=== PATIENT | male | born 1940 | race Caucasian/White ===

== ENCOUNTER 2022-05-15 14:56 | Inpatient (IN) ==
[2022-05-15 18:16] LABS: BASOPHILS % (AUTO) 0.2 % (0.2-1.0); EOSINOPHILS % (AUTO) 0.4 % (0.9-2.9); HEMATOCRIT 25.5 % (42.0-54.0); HEMOGLOBIN 8.6 g/dL (13.5-18.0); LYMPHOCYTES # (AUTO) 0.6 X10^3/uL (1.3-2.9); LYMPHOCYTES % (AUTO) 7.6 % (21.0-51.0); MEAN CORPUSCULAR HEMOGLOBIN 29.2 pg (27.0-34.0); MEAN CORPUSCULAR HGB CONC 33.8 g/dL (33.0-35.0); MEAN CORPUSCULAR VOLUME 86.3 fL (80.0-100.0); MEAN PLATELET VOLUME 7.5 fL (7.4-11.0); MONOCYTES # (AUTO) 0.4 x10^3/uL (0.3-0.8); MONOCYTES % (AUTO) 4.9 % (0.0-13.0); NEUTROPHILS % (AUTO) 86.9 % (42.0-75.0); RED BLOOD COUNT 2.96 X10^6/uL (4.7-6.0)
[2022-05-15] MEDS ORDERED: DUONEB 0.5 MG/3 MG (3 mL) NEB SCH (18:30)
[2022-05-15 18:55] LABS: ALANINE AMINOTRANSFERASE 28 Units/L (12-78); ALBUMIN 3.5 g/dL (3.4-5.0); ALKALINE PHOSPHATASE 65 Units/L (46-116); ASPARTATE AMINO TRANSFERASE 16 Units/L (15-37); BLOOD UREA NITROGEN 132 mg/dL (7-18); CALCIUM 7.8 mg/dL (8.5-10.1); CARBON DIOXIDE 18.5 mmol/L (21-32); CHLORIDE 105 mmol/L (98-107); CREATININE 10.39 mg/dL (0.70-1.30); SODIUM 141 mmol/L (136-145); TOTAL PROTEIN 6.1 g/dL (6.4-8.2); eGFR NON BLACK RACES 5 (>60)
[2022-05-15] MEDS: NICOTINE PATCH TD SCH (20:56)
[2022-05-15] MEDS: NEURONTIN CAP 300 MG PO SCH (20:57)
[2022-05-15] MEDS: DITROPAN TAB 5 MG PO SCH (20:57)
[2022-05-15] MEDS: APRESOLINE TAB 25 MG PO SCH (20:57)
[2022-05-15] MEDS: SODIUM BICARBONATE TAB 650MG PO SCH (20:57)
[2022-05-15] MEDS: DUONEB 0.5 MG/3 MG (3 mL) NEB SCH (21:00)
[2022-05-16] MEDS: DUONEB 0.5 MG/3 MG (3 mL) NEB SCH ×2 (06:24→21:00)
[2022-05-16] MEDS: NICOTINE PATCH TD SCH (09:50)
[2022-05-16] MEDS: PROTONIX TAB 40 MG PO SCH (09:51)
[2022-05-16] MEDS: APRESOLINE TAB 25 MG PO SCH ×2 (09:51→21:03)
[2022-05-16] MEDS: NORVASC TAB 10 MG PO SCH (09:51)
[2022-05-16] MEDS: SODIUM BICARBONATE TAB 650MG PO SCH ×2 (09:51→21:03)
[2022-05-16] MEDS: DITROPAN TAB 5 MG PO SCH ×2 (09:51→21:03)
[2022-05-16] MEDS: ASPIRIN 81 MG CHEWTAB PO SCH (09:52)
[2022-05-16] MEDS ORDERED: NS 250 ML IV 250 ML IV ONE (11:19)
--- NOTE | 2022-05-16 11:23 | DR.H&P ---
H&P - History & Physical for Day of: H&P Date: 05/15/22 - Chief Complaint Chief Complaint: WEAKNESS, UNSTEADY GAIT, DIFFICULTY PERFORMING ADLs. - History of Present Illness History of Present Illness: WAS ADMITTED INPATIENT SWINGBED STATUS FOR TREATMENT OF ACUTE KIDNEY FAILURE, URINARY OUTLET OBSTRUCTION WITH HYDRONEPHROSIS, GENERALIZED WEAKNESS, DECONDITIONING. HE IS STATUS POST CYSTOSCOPY. OBSTRUCTION IS LIKELY DUE TO MASS OF THE PROSTATE. BIOPSIES ARE PENDING. UROLOGIST RECOMMENDED THAT PATIENT REMAIN ON IV ANTIBIOTICS POST CYSTOSCOPY UNTIL 05/18/22. PATIENT WILL RECEIVE PHYSICAL AND OCCUPATIONAL THERAPIES WHILE HE IS HOSPITALIZED. - Past Medical History Past Medical History: Anxiety, Arthritis, GERD, Hypertension, Renal Disease Additional Medical History: BPH, CHRONIC LOW BACK PAIN, DDD - Past Surgical History Surgical History: Other Additional Surgical History: INGUINAL HERNIA REPAIR, PROSTATE - Family History Family Medical History: Diabetes Mellitus, Cancer, MA, Hypertension - Medications Home Medications: No Known Allergies Allergy (Verified 05/09/22 18:15) CONTINUE taking the following medications acetaminophen 325 mg tablet (Tylenol) 650 mg PO Q4HR PRN Fever 05/15/22 [History] amlodipine 10 mg tablet 10 mg PO DAILY 05/15/22 [History] aspirin 81 mg chewable tablet 81 mg PO DAILY 05/15/22 [History] clonazepam 0.5 mg tablet 0.5 mg PO BID PRN Anxiety 05/15/22 [History] dicyclomine 20 mg tablet 20 mg PO QID PRN Abdominal Pain 05/15/22 [History] gabapentin 300 mg tablet 300 mg PO HS 05/15/22 [History] hydralazine 50 mg tablet 50 mg PO BID 05/15/22 [History] ipratropium 0.5 mg-albuterol 3 mg (2.5 mg base)/3 mL nebulization soln 3 ml inhalation Q8H 05/15/22 [History] nicotine 14 mg/24 hr daily transdermal patch 1 patch transdermal DAILY 05/15/22 [History] oxybutynin chloride 5 mg tablet 5 mg PO BID 05/15/22 [History] pantoprazole 40 mg tablet,delayed release (Protonix) 40 mg PO DAILY 05/15/22 [History] sodium bicarbonate 650 mg tablet 650 mg PO BID 05/15/22 [History] tizanidine 2 mg tablet 2 mg PO HS PRN Muscle Spasticity 05/15/22 [History] - Review of Systems Constitutional: Weakness Eyes: No Symptoms Reported ENT: No Symptoms Reported Respiratory: No Symptoms Reported Cardiovascular: No Symptoms Reported Gastrointestinal: No Symptoms Reported Genitourinary: Retention (PATIENT NOW HAS A MCLEAN CATHETER IN PLACE ) Musculoskeletal: Back Pain Skin: No Symptoms Reported Neurological: Weakness, Confusion - Physical Exam Vital Signs: Temperature 97.6 F Pulse Rate [Left Brachial] 93 Pulse Rate 68 Respiratory Rate 18 Blood Pressure [Left Arm] 164/72 O2 Sat by Pulse Oximetry 96 Oriented: Normal Eyes: Normal Ear: Normal Nose: Normal Throat: Normal Respiratory: Clear Throughout Cardiovascular: Normal : Normal Auscultation: Bowel Sounds: Normal Palpation: Normal Tenderness: Suprapubic Skin: Normal Musculoskeletal: Back:Lumbar, Tender Psychiatric: Normal Mood Description: Calm Affect: Normal Speech Pattern: Clear - Assessment/Plan (1) Urinary (tract) obstruction Status: Acute (2) Hydronephrosis Qualifiers: Hydronephrosis type: unspecified Qualified Code(s): N13.30 - Unspecified hydronephrosis Status: Acute (3) Urinary tract infection Qualifiers: Urinary tract infection type: acute cystitis Hematuria presence: without hematuria Qualified Code(s): N30.00 - Acute cystitis without hematuria Status: Acute (4) Acute kidney injury Status: Acute (5) Acute confusion Status: Acute (6) HTN (hypertension) Qualifiers: Hypertension type: primary hypertension Qualified Code(s): I10 - Essential (primary) hypertension Status: Chronic (7) Lumbar degenerative disc disease Status: Chronic - Allergies Allergies/Adverse Reactions: Allergies Allergy/AdvReac Type Severity Reaction Status Date / Time No Known Allergies Allergy Verified 05/09/22 18:15
[2022-05-16] MEDS: ROCEPHIN VIAL 1 GRAM 1 G in NS 100 ML IV 100 ML IV SCH (11:49)
[2022-05-16] MEDS: ZYVOX 600MG IV 600 MG/300 ML BAG IV SCH ×2 (12:18→21:03)
--- NOTE | 2022-05-16 12:58 | PT/OTEVAL ---
PT/OT OBJECTIVES - HISTORY Prescription: PT Consult Diagnosis: Acute on Chronic Kidney Failure, Renal Acidosis, Hyperkalemia, Acute Confus Precautions: Fall Risk, + Catheter PMH: Acute on Chronic Renal Failure, Anxiety, Arthritis, GERD, HTN, BPH, LBP, DDD, Urinary Outlet Obstruction with B Hydonephrosis, Prostate Enlargement, Inguinal Hernia Repair, Transurethral Resection of Prostate Complexities/Comorbities: Complicated medical history Prior Level of Function: Independent Other: Pt's son present in room & assisted in providing information that pt could not. Prior to hospitalization- pt resides in single story home with 1 step to enter with his grandson. Grandson works multimedia producer so pt's is alone during the day. Pt was independent with all mobility tasks within home and community without a device including driving. Pt with no significant deficits, but does report history of low back pain to LLE radicular symptoms. Pt does not have any DME. History of Present Illness: Pt is an 81 year old male who was admitted to [facility] on 05/15/2022 for swing bed program following hospitalization at [facility] from 05/10/2022-05/15/2022 for AMS and urinary incontinence. Pt underwent a cystoscopy with irrigation of clots and catheter placement on 05/11/2022. Once pt was medically stabilized, pt was transferred to [facility] for swing bed program. - COGNITION Mental Status: Alert, Oriented, Name, Confused, Decreased Safety Awarenes Communication Status: Verbal Ability to Follow Directions: 1 Step Memory Loss: Short term memory loss Affect: Sad (Pt noted to tear up when initially asking about PLOF and living situation. Able to be redirected with no further crying noted.) - BED MOBILITY Rolling: Moderate Scooting: Moderate - TRANSFERS Supine to Sit: Moderate Sit to Stand: Moderate Sit or Stand Pivot: Moderate Safety (requires cues for:): Hand Placement Precaution - BALANCE Static Standing: Fair Balance Comment: Static Standing: Fair- Dynamic Sitting: Fair Standing: Poor Balance Comment: Dynamic Standing: Poor- - NEUROMOTOR/SENSATION Curt. Lower Ext Sensation: WFL Coordination: WFL Proprioception: WFL - HAND DOMINANCE Extremity Function: Hand Dominance: Right - ROM Bilateral LE ROM: WFL Muscle Tone: WFL - STRENGTH Bilateral LE Strength Number: 3 Other comment: 3-/5 - GAIT Pt. ambulates how many feet?: 20 Amount of Assistance Required: Minimal Type of Assistive Device: Rolling Walker Comments: FWW- posterior lean noted, unsteady. Mod/max cues for sequencing with FWW - OBJECTIVE MEASURES & STANDARDS Objective Measures & Standards: Elderly Mobility Scale: 11/16 - TREATMENT Date: 05/16/22 Time: 10:15 Treatment Type: Evaluation Treatment Provided: Gait, Therapeutic Activities - TOTAL TREATMENT TIME Total Time: 75 - POST ASSESSMENT Post Assessment Comment: Pt was found supine in bed in room with son present & agreeable to participation in PT services. Pt attempted to provide history & PLOF information but did have some difficulty recalling all details which son assisted in completing full history. Pt required mod assist to complete bed mobility tasks and functional transfers. Pt required cues for proper hand placement and sequencing for mobility tasks. Pt able to perform standing standing x 4 minutes before fatigue with min assist to maintain balance- pt able to let go of walker x 1 attempt requiring min/mod assist to maintain standing balance. Pt then ambulated for 15ft x 2 with seated therapeutic rest break between trials. Pt then ambulated for an additional 20ft in room with FWW with min assist to recliner chair. Pt agreeable to sit in chair in room with son present. Explained PT POC and goals. Plan is to discharge home if possible. Pt would benefit from continued participation in PT services to address all deficits and facilitate highest level of function & safe discharge planning. - EXIT DISPOSITION Exit Position: CHAIR Call light in reach: Yes Bed Alarm On: N/A Comments: Son present in room PT/OT ASSESSMENT - PT Problem List: Decreased Bed Mobility, Decreased Transfers, Decreased Gait, Decreased Balance, Decreased Safety, Decreased LE Strength - PT GOALS Short Term Goals Days: 10 Mobility: Pt will perform bed mobility tasks with CGA Transfers: Pt will perform functional transfers with CGA Gait: Pt will ambulate 100ft with FWW with CGA Balance: Pt will increase static standing balance to fair+ to maintain x 10 minutes [employer] Goals Days: 20 Mobility: Pt will perform bed mobility tasks with mod I Transfers: Pt will perform functional transfers with mod I Gait: Pt will ambulate 250ft with LRAD with mod I Balance: Pt will increase dynamic standing balance to fair/fair+ ROM/Strength: Pt will increase BLE strength to 5/5 Others: Pt will ascend/descend 1 step with LRAD with mod I - PATIENT GOALS Patient/Family Goals: "Just get home if I can" Goals Discussed with Patient/Family: Yes Rehabilitation Potential: Good to meet stated goals Justification for Potential: Facilitate highest level of function & safe discharge planning Weakness and Barriers: Cognitive Barrier If yes, explain: Short term memory deficits noted. - PLAN Suggested Treatment Plan: Bed Mobility Training, Therapeutic Activity, Gait Training, Neuro Re-education, Therapeutic Ex with HEP, Patient Education, Family Education - FREQUENCY AND DURATION PT: 5x per week x hospital stay Expected Continuation of Care at Discharge: Home Health Anticipated Equipment Needs: TBD pending progress with therapy services.
[2022-05-16] MEDS: NEURONTIN CAP 300 MG PO SCH (21:03)
[2022-05-17] MEDS: DUONEB 0.5 MG/3 MG (3 mL) NEB SCH ×3 (05:15→21:00)
[2022-05-17] MEDS: ZYVOX 600MG IV 600 MG/300 ML BAG IV SCH ×2 (08:18→20:32)
[2022-05-17] MEDS: SODIUM BICARBONATE TAB 650MG PO SCH ×2 (08:19→20:20)
[2022-05-17] MEDS: PROTONIX TAB 40 MG PO SCH (08:19)
[2022-05-17] MEDS: NORVASC TAB 10 MG PO SCH (08:19)
[2022-05-17] MEDS: ROCEPHIN VIAL 1 GRAM 1 G in NS 100 ML IV 100 ML IV SCH (08:19)
[2022-05-17] MEDS: APRESOLINE TAB 25 MG PO SCH ×2 (08:19→20:20)
[2022-05-17] MEDS: DITROPAN TAB 5 MG PO SCH ×2 (08:19→20:20)
[2022-05-17] MEDS: NICOTINE PATCH TD SCH (08:20)
[2022-05-17] MEDS: ASPIRIN 81 MG CHEWTAB PO SCH (08:20)
[2022-05-17 10:54] LABS: CALCIUM 7.7 mg/dL (8.5-10.1); CARBON DIOXIDE 18.4 mmol/L (21-32); CREATININE 9.71 mg/dL (0.70-1.30)
--- NOTE | 2022-05-17 12:58 | PT/OTEVAL ---
PT/OT OBJECTIVES - HISTORY Prescription: OT consult Diagnosis: Acute on Chronic Kidney Failure,Renal Acidosis,Hyperkalemia,Acute Confusion Precautions: fall risk, (+)lundberg catheter PMH: Acute on Chronic Renal Failure, Anxiety, Arthritis, GERD, HTN, BPH, LBP, DDD, Urinary Outlet Obstruction with B Hydonephrosis, Prostate Enlargement, Inguinal Hernia Repair, Transurethral Resection of Prostate Complexities/Comorbities: Complicated medical history Prior Level of Function: Independent Other: prior to hospitalization, pt lives w/grandson but is basically alone most of the tie as grandson works community health program representative. He resides in a single level home with 3 small steps with no handrail per son's report. Pt reported being independent with ADLs, IADLs and functional mobility without AE and has no reported falls over the past 6 months. History of Present Illness: Pt is an 81 year old male who was admitted to [facility] on 05/15/2022 for swing bed program following hospitalization at [facility] from 05/10/2022-05/15/2022 for AMS and urinary incontinence. Pt underwent a cystoscopy with irrigation of clots and catheter placement on 023. Once pt was medically stabilized, pt was transferred to [facility] for swing bed program. - COGNITION Mental Status: Alert, Oriented, Name, Date, Place, Purpose, Agitated, Decreased Safety Awarenes Communication Status: Verbal Ability to Follow Directions: 3 Step Affect: Sad (patient initially expressed frustration that he can't even go to actual bathroom by himself.Pt also cried during interview when asked of PLOF. Son assisted to calm patient down) - PAIN No signs of pain Pain Scale: No Pain - BED MOBILITY Scooting: Minimal - TRANSFERS Supine to Sit: Minimal Sit to Stand: Moderate Sit or Stand Pivot: Moderate Toileting: Moderate Toileting comment: (+)lundberg catheter, uses BSC at this time Safety (requires cues for:): Hand Placement Precaution - ADL'S Feeding: Independent Grooming: Minimum Upper Body ADL: Minimum Lower Body ADL: Moderate Toileting: Moderate Bathing: Moderate Hygeine: Moderate - BALANCE Static Sitting: Good Standing: Fair Balance Comment: Static Standing: Fair- Dynamic Sitting: Fair Standing: Poor Balance Comment: Dynamic Standing: Poor- - NEUROMOTOR/SENSATION Curt. Lower Ext Sensation: WFL Coordination: WFL Proprioception: WFL Curt. Upper Ext Sensation: WFL Coordination: WFL Proprioception: WFL - HAND DOMINANCE Extremity Function: Hand Dominance: Right - ROM Bilateral UE ROM: WFL Muscle Tone: WFL - STRENGTH Bilateral LE Strength Number: 3 Other comment: 3-/5 Bilateral UE Strength Number: 3 - GAIT Type of Assistive Device: Rolling Walker - TREATMENT Date: 05/17/22 Time: 10:50 Treatment Type: Evaluation Treatment Provided: Therapeutic Excersises - TOTAL TREATMENT TIME Total Time: 65 - POST ASSESSMENT Post Assessment Comment: Patient prefers to be called "Mr. Ceja".He demonstrated G participation with skilled OT initial evaluation and was agreeable to participate with succeeding treatment session. Pt requires extra time to complete functional task and required some verbal cueing for task initiation and sequencing as well as proper hand and feet placement for safety during eval. Pt educated on importance of skilled OT services for returning to PLOF. Pt voiced understanding. Pt participated with therapeutic exercises of B UE using min resistance theraband for 15 reps x 2 sets with demo. Pt completed each exercise with min verbal and visual cues for G carryover. Pt will benefit from skilled OT services to address decline in function and facilitate return to PLOF. - EXIT DISPOSITION Exit Position: BED Call light in reach: Yes Bed Alarm On: NO Comments: Pt was assisted back in the bed with all needs met and call light within reach. Son was present in the room during and after eval. PT/OT ASSESSMENT - OT Problem List: Decreased Mobility ADL's, Decreased Safety Aware, Decreased Dressing, Decreased Bathing, Decreased UE Strength, Other Other, comment: decreased functional activity tolerance - PT GOALS Short Term Goals Days: 10 Mobility: Pt will perform bed mobility tasks with CGA Transfers: Pt will perform functional transfers with CGA Gait: Pt will ambulate 100ft with FWW with CGA Balance: Pt will increase static standing balance to fair+ to maintain x 10 minutes Nursing Home Goals Days: 20 Mobility: Pt will perform bed mobility tasks with mod I Transfers: Pt will perform functional transfers with mod I Gait: Pt will ambulate 250ft with LRAD with mod I Balance: Pt will increase dynamic standing balance to fair/fair+ ROM/Strength: Pt will increase BLE strength to 5/5 Others: Pt will ascend/descend 1 step with LRAD with mod I - OT GOALS Nursing Home Goals Days: 20 Mobility for ADL's: Pt will improve toilet t/f to actual bathroom independently Safety Awareness: Pt will demonstrate G safety awareness to decrease fall risk Dressing: Pt will perform UB/LB dressing independently with AE as needed. Bathing: Pt will improve bathing skills to modified independence w/AE Grooming: Pt will improve grooming skills to independent level Upper Ext. Strength/Use: Pt will increase BUE strength to 4/5 to increase ADL,t/f and mobility Other: Pt will imporve F.A.T. to G to increase efficiency with ADL Short Term Goals Days: 10 Mobility for ADL's: Pt will improve toilet t/f to BSC with min A with AE as needed Dressing: Pt will perform UB/LB dressing with min A with AE as needed. Bathing: Pt will improve bathing skills to min A with AE as needed Grooming: Pt will improve grooming skills to setup A Upper Ext. Strength/Use: Pt will increase BUE strength to 5/5 to increase ADL,t/f and mobility Other: Pt will imporve F.A.T. to F+ to increase efficiency with ADL - PATIENT GOALS Patient/Family Goals: return to PLOF Goals Discussed with Patient/Family: Yes Rehabilitation Potential: good for stated goals Justification for Potential: high level of PLOF, G motivation,G family support - PLAN Suggested Treatment Plan: Therapeutic Activity, Self Care Training, Neuro Re- education, Therapeutic Ex with HEP, Patient Education, Family Education - FREQUENCY AND DURATION OT: 5x a week x hospital stay Expected Continuation of Care at Discharge: Home Health, Rehabilitation Center Anticipated Equipment Needs: to be determined depending on patient's progress
[2022-05-17] MEDS: BENTYL CAP 10 MG PO PRN (19:00)
[2022-05-17] MEDS: NEURONTIN CAP 300 MG PO SCH (20:20)
[2022-05-17] MEDS: TYLENOL 325 MG TAB PO PRN (21:05)
[2022-05-18 05:02] LABS: BASOPHILS % (AUTO) 0.3 % (0.2-1.0); EOSINOPHILS # (AUTO) 0.2 x10^3/uL (0.0-0.2); EOSINOPHILS % (AUTO) 3.3 % (0.9-2.9); HEMATOCRIT 21.4 % (42.0-54.0); HEMOGLOBIN 7.3 g/dL (13.5-18.0); LYMPHOCYTES # (AUTO) 0.9 X10^3/uL (1.3-2.9); LYMPHOCYTES % (AUTO) 16.3 % (21.0-51.0); MEAN CORPUSCULAR HGB CONC 34.1 g/dL (33.0-35.0); MEAN CORPUSCULAR VOLUME 85.1 fL (80.0-100.0); MONOCYTES # (AUTO) 0.4 x10^3/uL (0.3-0.8); NEUTROPHILS # (AUTO) 4.2 x10^3/uL (2.2-4.8); NEUTROPHILS % (AUTO) 73.1 % (42.0-75.0); RED BLOOD COUNT 2.52 X10^6/uL (4.7-6.0); RED CELL DISTRIBUTION WIDTH 15.2 % (11.6-16.5); WHITE BLOOD COUNT 5.7 X10^3/uL (3.6-10.0)
[2022-05-18 05:12] LABS: ALANINE AMINOTRANSFERASE 41 Units/L (12-78); ALBUMIN 3.1 g/dL (3.4-5.0); ALKALINE PHOSPHATASE 55 Units/L (46-116); ASPARTATE AMINO TRANSFERASE 27 Units/L (15-37); BLOOD UREA NITROGEN 110 mg/dL (7-18); CALCIUM 7.9 mg/dL (8.5-10.1); CHLORIDE 107 mmol/L (98-107); COR CA(FOR HYPOALB) 8.6 mg/dL (8.5-10.1); CREATININE 9.39 mg/dL (0.70-1.30); SODIUM 142 mmol/L (136-145); TOTAL PROTEIN 5.5 g/dL (6.4-8.2); eGFR NON BLACK RACES 6 (>60)
[2022-05-18 05:29] LABS: HYPOCHROMASIA SLIGHT; MICROCYTOSIS SLIGHT; PLATELET MORPHOLOGY COMMENT NORMAL (NORMAL); SCHISTOCYTES PRESENT
[2022-05-18] MEDS: DUONEB 0.5 MG/3 MG (3 mL) NEB SCH ×3 (06:05→20:20)
[2022-05-18] MEDS: ROCEPHIN VIAL 1 GRAM 1 G in NS 100 ML IV 100 ML IV SCH (08:37)
[2022-05-18] MEDS: ZYVOX 600MG IV 600 MG/300 ML BAG IV SCH ×2 (08:37→20:42)
[2022-05-18] MEDS: APRESOLINE TAB 25 MG PO SCH ×2 (08:38→20:42)
[2022-05-18] MEDS: DITROPAN TAB 5 MG PO SCH ×2 (08:38→20:42)
[2022-05-18] MEDS: NORVASC TAB 10 MG PO SCH (08:38)
[2022-05-18] MEDS: ASPIRIN 81 MG CHEWTAB PO SCH (08:38)
[2022-05-18] MEDS: PROTONIX TAB 40 MG PO SCH (08:38)
[2022-05-18] MEDS: NICOTINE PATCH TD SCH (08:39)
[2022-05-18] MEDS: SODIUM BICARBONATE TAB 650MG PO SCH ×2 (08:39→20:42)
[2022-05-18] MEDS: BENTYL CAP 10 MG PO PRN (09:26)
[2022-05-18 10:24] VITALS: BMI 22.1
[2022-05-18] MEDS ORDERED: COLACE CAP 100 MG PO PRN (12:11)
[2022-05-18] MEDS: MILK OF MAGNESIA PO PRN ×2 (13:00→20:41)
[2022-05-18] MEDS: NEURONTIN CAP 300 MG PO SCH (20:42)
[2022-05-18] MEDS: ZOFRAN INJ 4 MG VIAL IVP PRN (23:35)
[2022-05-19] MEDS: DUONEB 0.5 MG/3 MG (3 mL) NEB SCH ×3 (05:30→21:28)
[2022-05-19 05:46] LABS: BASOPHILS % (AUTO) 0.6 % (0.2-1.0); EOSINOPHILS # (AUTO) 0.2 x10^3/uL (0.0-0.2); EOSINOPHILS % (AUTO) 3.2 % (0.9-2.9); HEMATOCRIT 20.9 % (42.0-54.0); HEMOGLOBIN 7.1 g/dL (13.5-18.0); LYMPHOCYTES # (AUTO) 0.9 X10^3/uL (1.3-2.9); LYMPHOCYTES % (AUTO) 16.3 % (21.0-51.0); MEAN CORPUSCULAR HEMOGLOBIN 29.4 pg (27.0-34.0); MEAN CORPUSCULAR HGB CONC 34.2 g/dL (33.0-35.0); MEAN CORPUSCULAR VOLUME 85.8 fL (80.0-100.0); MEAN PLATELET VOLUME 8.1 fL (7.4-11.0); MONOCYTES # (AUTO) 0.5 x10^3/uL (0.3-0.8); MONOCYTES % (AUTO) 8.3 % (0.0-13.0); NEUTROPHILS # (AUTO) 4.1 x10^3/uL (2.2-4.8); NEUTROPHILS % (AUTO) 71.6 % (42.0-75.0); RED BLOOD COUNT 2.43 X10^6/uL (4.7-6.0); RED CELL DISTRIBUTION WIDTH 14.8 % (11.6-16.5); WHITE BLOOD COUNT 5.8 X10^3/uL (3.6-10.0)
[2022-05-19 06:01] LABS: ALANINE AMINOTRANSFERASE 51 Units/L (12-78); ALKALINE PHOSPHATASE 56 Units/L (46-116); ASPARTATE AMINO TRANSFERASE 32 Units/L (15-37); BLOOD UREA NITROGEN 99 mg/dL (7-18); CALCIUM 7.8 mg/dL (8.5-10.1); CARBON DIOXIDE 20.8 mmol/L (21-32); CHLORIDE 106 mmol/L (98-107); COR CA(FOR HYPOALB) 8.6 mg/dL (8.5-10.1); CREATININE 8.84 mg/dL (0.70-1.30); SODIUM 141 mmol/L (136-145); TOTAL PROTEIN 5.4 g/dL (6.4-8.2); eGFR NON BLACK RACES 6 (>60)
[2022-05-19] MEDS ORDERED: ZYVOX 600MG IV 600 MG/300 ML BAG IV SCH (09:00)
[2022-05-19] MEDS: SODIUM BICARBONATE TAB 650MG PO SCH ×2 (09:29→21:46)
[2022-05-19] MEDS: NORVASC TAB 10 MG PO SCH (09:29)
[2022-05-19] MEDS: PROTONIX TAB 40 MG PO SCH (09:29)
[2022-05-19] MEDS: ASPIRIN 81 MG CHEWTAB PO SCH (09:29)
[2022-05-19] MEDS: DITROPAN TAB 5 MG PO SCH ×2 (09:29→21:46)
[2022-05-19] MEDS: NICOTINE PATCH TD SCH (09:29)
[2022-05-19] MEDS: APRESOLINE TAB 25 MG PO SCH ×2 (09:29→21:44)
[2022-05-19] MEDS: MILK OF MAGNESIA PO PRN (09:30)
[2022-05-19] MEDS ORDERED: PROCRIT or EPOGEN VIAL 10,000 UNITS SC ONE (10:30)
[2022-05-19] MEDS: BENTYL CAP 10 MG PO SCH ×4 (12:23→21:44)
[2022-05-19] MEDS: MIRALAX POWDER (1 DOSE 17 G) PO SCH (12:23)
--- NOTE | 2022-05-19 16:26 | RAD ---
HISTORYABD PAIN HERNIA, PROSTATE, HTNSTUDYKUBCOMPARISONNone availableFINDINGSThere is no abnormal dilated small bowel loops, there are some air containing small bowel loops. There is air in the colon and in the rectosigmoid regionThere is large amount of stool through the abdomen. No abnormal intra-abdominal calcifications.IMPRESSIONMild to moderate constipation. Scattered air in the small bowel loops without specific pattern.Electronically signed by: Dinorah Hunter (May 19, 2022 16:25:18)
[2022-05-19] MEDS: NEURONTIN CAP 300 MG PO SCH (21:45)
[2022-05-19] MEDS: COLACE CAP 100 MG PO SCH (21:45)
[2022-05-19] MEDS: MILK OF MAGNESIA PO SCH (21:46)
[2022-05-20] MEDS: DUONEB 0.5 MG/3 MG (3 mL) NEB SCH ×3 (06:09→21:00)
[2022-05-20] MEDS: NORVASC TAB 10 MG PO SCH (08:09)
[2022-05-20] MEDS: COLACE CAP 100 MG PO SCH ×2 (08:09→21:02)
[2022-05-20] MEDS: DITROPAN TAB 5 MG PO SCH ×2 (08:09→21:04)
[2022-05-20] MEDS: SODIUM BICARBONATE TAB 650MG PO SCH ×2 (08:09→21:03)
[2022-05-20] MEDS: PROTONIX TAB 40 MG PO SCH (08:09)
[2022-05-20] MEDS: ASPIRIN 81 MG CHEWTAB PO SCH (08:09)
[2022-05-20] MEDS: MIRALAX POWDER (1 DOSE 17 G) PO SCH (08:10)
[2022-05-20] MEDS: BENTYL CAP 10 MG PO SCH ×4 (08:10→21:04)
[2022-05-20] MEDS: NICOTINE PATCH TD SCH (08:10)
[2022-05-20] MEDS: APRESOLINE TAB 25 MG PO SCH ×2 (08:10→21:03)
[2022-05-20] MEDS: MILK OF MAGNESIA PO SCH ×2 (08:10→21:04)
[2022-05-20] MEDS: KLONOPIN TAB 0.5 MG PO PRN (08:10)
[2022-05-20] MEDS: NEURONTIN CAP 300 MG PO SCH (21:03)
[2022-05-21] MEDS: DUONEB 0.5 MG/3 MG (3 mL) NEB SCH ×3 (05:59→21:00)
[2022-05-21] MEDS: ASPIRIN 81 MG CHEWTAB PO SCH (09:54)
[2022-05-21] MEDS: NORVASC TAB 10 MG PO SCH (09:54)
[2022-05-21] MEDS: NICOTINE PATCH TD SCH (09:54)
[2022-05-21] MEDS: SODIUM BICARBONATE TAB 650MG PO SCH ×2 (09:54→20:25)
[2022-05-21] MEDS: APRESOLINE TAB 25 MG PO SCH ×2 (09:54→20:25)
[2022-05-21] MEDS: MIRALAX POWDER (1 DOSE 17 G) PO SCH (09:55)
[2022-05-21] MEDS: BENTYL CAP 10 MG PO SCH ×4 (09:55→20:25)
[2022-05-21] MEDS: COLACE CAP 100 MG PO SCH ×2 (09:55→20:25)
[2022-05-21] MEDS: KLONOPIN TAB 0.5 MG PO PRN (09:55)
[2022-05-21] MEDS: PROTONIX TAB 40 MG PO SCH (09:55)
[2022-05-21] MEDS: DITROPAN TAB 5 MG PO SCH ×2 (09:55→20:25)
[2022-05-21] MEDS: MILK OF MAGNESIA PO SCH ×2 (09:56→20:26)
[2022-05-21] MEDS: NEURONTIN CAP 300 MG PO SCH (20:25)
[2022-05-21] MEDS: TYLENOL 325 MG TAB PO PRN (22:15)
[2022-05-22 05:33] LABS: BASOPHILS % (AUTO) 0.4 % (0.2-1.0); EOSINOPHILS # (AUTO) 0.2 x10^3/uL (0.0-0.2); EOSINOPHILS % (AUTO) 3.2 % (0.9-2.9); HEMATOCRIT 22.7 % (42.0-54.0); HEMOGLOBIN 7.6 g/dL (13.5-18.0); LYMPHOCYTES # (AUTO) 0.8 X10^3/uL (1.3-2.9); LYMPHOCYTES % (AUTO) 12.8 % (21.0-51.0); MEAN CORPUSCULAR HGB CONC 33.4 g/dL (33.0-35.0); MEAN PLATELET VOLUME 8.4 fL (7.4-11.0); MONOCYTES # (AUTO) 0.5 x10^3/uL (0.3-0.8); MONOCYTES % (AUTO) 8.1 % (0.0-13.0); NEUTROPHILS # (AUTO) 4.8 x10^3/uL (2.2-4.8); NEUTROPHILS % (AUTO) 75.5 % (42.0-75.0); RED BLOOD COUNT 2.61 X10^6/uL (4.7-6.0); RED CELL DISTRIBUTION WIDTH 15.3 % (11.6-16.5); WHITE BLOOD COUNT 6.3 X10^3/uL (3.6-10.0)
[2022-05-22 05:44] LABS: ALANINE AMINOTRANSFERASE 49 Units/L (12-78); ALBUMIN 3.3 g/dL (3.4-5.0); ALKALINE PHOSPHATASE 66 Units/L (46-116); ASPARTATE AMINO TRANSFERASE 24 Units/L (15-37); BLOOD UREA NITROGEN 80 mg/dL (7-18); CALCIUM 8.1 mg/dL (8.5-10.1); CARBON DIOXIDE 23.3 mmol/L (21-32); CHLORIDE 105 mmol/L (98-107); COR CA(FOR HYPOALB) 8.7 mg/dL (8.5-10.1); CREATININE 8.42 mg/dL (0.70-1.30); SODIUM 138 mmol/L (136-145); eGFR NON BLACK RACES 7 (>60)
[2022-05-22] MEDS: DUONEB 0.5 MG/3 MG (3 mL) NEB SCH ×3 (06:00→21:00)
[2022-05-22] MEDS: NICOTINE PATCH TD SCH (08:22)
[2022-05-22] MEDS: DITROPAN TAB 5 MG PO SCH ×2 (08:23→20:29)
[2022-05-22] MEDS: SODIUM BICARBONATE TAB 650MG PO SCH ×2 (08:23→20:30)
[2022-05-22] MEDS: NORVASC TAB 10 MG PO SCH (08:23)
[2022-05-22] MEDS: ASPIRIN 81 MG CHEWTAB PO SCH (08:24)
[2022-05-22] MEDS: APRESOLINE TAB 25 MG PO SCH ×2 (08:24→20:28)
[2022-05-22] MEDS: PROTONIX TAB 40 MG PO SCH (08:25)
[2022-05-22] MEDS: BENTYL CAP 10 MG PO SCH ×4 (08:25→20:29)
[2022-05-22] MEDS: MILK OF MAGNESIA PO SCH (08:45)
[2022-05-22] MEDS: MIRALAX POWDER (1 DOSE 17 G) PO SCH (08:45)
[2022-05-22] MEDS: COLACE CAP 100 MG PO SCH (08:48)
[2022-05-22] MEDS ORDERED: PROCRIT or EPOGEN VIAL 10,000 UNITS SC SCH (09:00)
[2022-05-22] MEDS: ZOFRAN INJ 4 MG VIAL IVP PRN (12:12)
[2022-05-22] MEDS ORDERED: MILK OF MAGNESIA PO PRN (12:44)
[2022-05-22] MEDS: PROCRIT or EPOGEN VIAL 10,000 UNITS SC SCH (14:31)
[2022-05-22] MEDS: NEURONTIN CAP 300 MG PO SCH (20:30)
[2022-05-22] MEDS: KLONOPIN TAB 0.5 MG PO PRN (20:30)
[2022-05-23] MEDS: DUONEB 0.5 MG/3 MG (3 mL) NEB SCH ×3 (05:56→20:00)
[2022-05-23] MEDS: APRESOLINE TAB 25 MG PO SCH ×2 (08:36→20:32)
[2022-05-23] MEDS: KLONOPIN TAB 0.5 MG PO PRN ×2 (08:36→20:33)
[2022-05-23] MEDS: NORVASC TAB 10 MG PO SCH (08:37)
[2022-05-23] MEDS: PROTONIX TAB 40 MG PO SCH (08:37)
[2022-05-23] MEDS: SODIUM BICARBONATE TAB 650MG PO SCH ×2 (08:38→20:32)
[2022-05-23] MEDS: COLACE CAP 100 MG PO PRN (08:38)
[2022-05-23] MEDS: DITROPAN TAB 5 MG PO SCH ×2 (08:38→20:32)
[2022-05-23] MEDS: BENTYL CAP 10 MG PO SCH ×4 (08:38→20:33)
[2022-05-23] MEDS: ASPIRIN 81 MG CHEWTAB PO SCH (08:38)
[2022-05-23] MEDS: NICOTINE PATCH TD SCH (08:39)
[2022-05-23] MEDS: TYLENOL 325 MG TAB PO PRN (10:37)
[2022-05-23] MEDS: NEURONTIN CAP 300 MG PO SCH (20:32)
[2022-05-24] MEDS: DUONEB 0.5 MG/3 MG (3 mL) NEB SCH ×3 (05:30→21:00)
[2022-05-24] MEDS: COLACE CAP 100 MG PO PRN (08:30)
[2022-05-24] MEDS: NORVASC TAB 10 MG PO SCH (08:31)
[2022-05-24] MEDS: PROTONIX TAB 40 MG PO SCH (08:31)
[2022-05-24] MEDS: TYLENOL 325 MG TAB PO PRN (08:31)
[2022-05-24] MEDS: BENTYL CAP 10 MG PO SCH ×4 (08:33→20:14)
[2022-05-24] MEDS: APRESOLINE TAB 25 MG PO SCH ×2 (08:33→20:16)
[2022-05-24] MEDS: SODIUM BICARBONATE TAB 650MG PO SCH ×2 (08:33→20:16)
[2022-05-24] MEDS: NICOTINE PATCH TD SCH (08:34)
[2022-05-24] MEDS: KLONOPIN TAB 0.5 MG PO PRN (08:34)
[2022-05-24] MEDS: ASPIRIN 81 MG CHEWTAB PO SCH (08:34)
[2022-05-24] MEDS: DITROPAN TAB 5 MG PO SCH ×2 (08:34→20:14)
[2022-05-24] MEDS: PROCRIT or EPOGEN VIAL 10,000 UNITS SC SCH (12:32)
[2022-05-24 13:08] LABS: ALANINE AMINOTRANSFERASE 42 Units/L (12-78); ALKALINE PHOSPHATASE 73 Units/L (46-116); ASPARTATE AMINO TRANSFERASE 17 Units/L (15-37); BLOOD UREA NITROGEN 71 mg/dL (7-18); CALCIUM 7.7 mg/dL (8.5-10.1); CARBON DIOXIDE 25.6 mmol/L (21-32); CHLORIDE 107 mmol/L (98-107); COR CA(FOR HYPOALB) 8.5 mg/dL (8.5-10.1); CREATININE 8.23 mg/dL (0.70-1.30); SODIUM 138 mmol/L (136-145); TOTAL PROTEIN 5.6 g/dL (6.4-8.2); eGFR NON BLACK RACES 7 (>60)
[2022-05-24] MEDS: NS 1,000 ML IV 1,000 ML IV SCH (15:45)
[2022-05-24] MEDS: NEURONTIN CAP 300 MG PO SCH (20:17)
[2022-05-24] MEDS: KLONOPIN TAB 0.5 MG PO SCH (20:17)
[2022-05-25] MEDS: NS 1,000 ML IV 1,000 ML IV SCH ×2 (05:23→21:30)
[2022-05-25 06:05] LABS: BASOPHILS # (AUTO) 0.1 X10^3/uL (0.0-0.1); BASOPHILS % (AUTO) 1.4 % (0.2-1.0); EOSINOPHILS # (AUTO) 0.3 x10^3/uL (0.0-0.2); EOSINOPHILS % (AUTO) 3.1 % (0.9-2.9); HEMATOCRIT 21.2 % (42.0-54.0); LYMPHOCYTES # (AUTO) 1.2 X10^3/uL (1.3-2.9); LYMPHOCYTES % (AUTO) 13.4 % (21.0-51.0); MEAN CORPUSCULAR HEMOGLOBIN 29.2 pg (27.0-34.0); MEAN CORPUSCULAR HGB CONC 33.1 g/dL (33.0-35.0); MEAN CORPUSCULAR VOLUME 88.4 fL (80.0-100.0); MEAN PLATELET VOLUME 7.8 fL (7.4-11.0); MONOCYTES # (AUTO) 0.5 x10^3/uL (0.3-0.8); NEUTROPHILS # (AUTO) 6.7 x10^3/uL (2.2-4.8); NEUTROPHILS % (AUTO) 76.1 % (42.0-75.0); RED CELL DISTRIBUTION WIDTH 14.9 % (11.6-16.5); WHITE BLOOD COUNT 8.8 X10^3/uL (3.6-10.0)
[2022-05-25] MEDS: DUONEB 0.5 MG/3 MG (3 mL) NEB SCH ×3 (06:20→21:00)
[2022-05-25 06:25] LABS: ALANINE AMINOTRANSFERASE 38 Units/L (12-78); ALBUMIN 3.1 g/dL (3.4-5.0); ALKALINE PHOSPHATASE 71 Units/L (46-116); ASPARTATE AMINO TRANSFERASE 16 Units/L (15-37); BLOOD UREA NITROGEN 67 mg/dL (7-18); CALCIUM 7.9 mg/dL (8.5-10.1); CARBON DIOXIDE 22.1 mmol/L (21-32); CHLORIDE 109 mmol/L (98-107); COR CA(FOR HYPOALB) 8.6 mg/dL (8.5-10.1); CREATININE 7.97 mg/dL (0.70-1.30); SODIUM 140 mmol/L (136-145); TOTAL PROTEIN 5.8 g/dL (6.4-8.2); eGFR NON BLACK RACES 7 (>60)
[2022-05-25] MEDS: ASPIRIN 81 MG CHEWTAB PO SCH (08:10)
[2022-05-25] MEDS: SODIUM BICARBONATE TAB 650MG PO SCH ×2 (08:10→21:30)
[2022-05-25] MEDS: NORVASC TAB 10 MG PO SCH (08:11)
[2022-05-25] MEDS: NICOTINE PATCH TD SCH (08:11)
[2022-05-25] MEDS: APRESOLINE TAB 25 MG PO SCH ×2 (08:11→21:30)
[2022-05-25] MEDS: BENTYL CAP 10 MG PO SCH ×4 (08:11→21:30)
[2022-05-25] MEDS: PROTONIX TAB 40 MG PO SCH (08:11)
[2022-05-25] MEDS: DITROPAN TAB 5 MG PO SCH ×2 (08:15→21:29)
[2022-05-25] MEDS ORDERED: KAYEXALATE SUSP PO NR (10:00)
[2022-05-25] MEDS ORDERED: LASIX IVP PRN (10:04)
[2022-05-25] MEDS ORDERED: NS 250 ML IV 250 ML IV ONE (18:04)
[2022-05-25] MEDS: KLONOPIN TAB 0.5 MG PO SCH (21:30)
[2022-05-25] MEDS: NEURONTIN CAP 300 MG PO SCH (21:30)
[2022-05-25 23:25] LABS: HEMATOCRIT 25.7 % (42.0-54.0); HEMOGLOBIN 8.6 g/dL (13.5-18.0)
[2022-05-26] MEDS: DUONEB 0.5 MG/3 MG (3 mL) NEB SCH ×3 (06:00→21:00)
[2022-05-26] MEDS: NORVASC TAB 10 MG PO SCH (09:21)
[2022-05-26] MEDS: NICOTINE PATCH TD SCH (09:21)
[2022-05-26] MEDS: BENTYL CAP 10 MG PO SCH ×4 (09:21→20:49)
[2022-05-26] MEDS: ASPIRIN 81 MG CHEWTAB PO SCH (09:21)
[2022-05-26] MEDS: DITROPAN TAB 5 MG PO SCH ×2 (09:21→20:50)
[2022-05-26] MEDS: SODIUM BICARBONATE TAB 650MG PO SCH ×2 (09:21→20:50)
[2022-05-26] MEDS: APRESOLINE TAB 25 MG PO SCH ×2 (09:21→20:50)
[2022-05-26] MEDS: PROTONIX TAB 40 MG PO SCH (09:21)
[2022-05-26] MEDS: NS 1,000 ML IV 1,000 ML IV SCH (10:32)
[2022-05-26 10:41] LABS: BASOPHILS # (AUTO) 0.1 X10^3/uL (0.0-0.1); EOSINOPHILS # (AUTO) 0.3 x10^3/uL (0.0-0.2); EOSINOPHILS % (AUTO) 2.8 % (0.9-2.9); HEMATOCRIT 25.9 % (42.0-54.0); HEMOGLOBIN 8.7 g/dL (13.5-18.0); LYMPHOCYTES # (AUTO) 0.7 X10^3/uL (1.3-2.9); LYMPHOCYTES % (AUTO) 6.8 % (21.0-51.0); MEAN CORPUSCULAR HEMOGLOBIN 29.2 pg (27.0-34.0); MEAN CORPUSCULAR HGB CONC 33.4 g/dL (33.0-35.0); MEAN CORPUSCULAR VOLUME 87.5 fL (80.0-100.0); MEAN PLATELET VOLUME 7.1 fL (7.4-11.0); MONOCYTES # (AUTO) 0.5 x10^3/uL (0.3-0.8); MONOCYTES % (AUTO) 5.4 % (0.0-13.0); NEUTROPHILS # (AUTO) 8.2 x10^3/uL (2.2-4.8); RED BLOOD COUNT 2.96 X10^6/uL (4.7-6.0); RED CELL DISTRIBUTION WIDTH 16.4 % (11.6-16.5); WHITE BLOOD COUNT 9.8 X10^3/uL (3.6-10.0)
[2022-05-26 10:53] LABS: ALBUMIN 2.9 g/dL (3.4-5.0); CALCIUM 7.6 mg/dL (8.5-10.1); CARBON DIOXIDE 22.6 mmol/L (21-32); COR CA(FOR HYPOALB) 8.5 mg/dL (8.5-10.1); CREATININE 7.8 mg/dL (0.70-1.30); TOTAL PROTEIN 5.7 g/dL (6.4-8.2)
[2022-05-26] MEDS: NORCO 5/325 MG TAB PO PRN ×2 (11:41→20:50)
[2022-05-26] MEDS: PROCRIT or EPOGEN VIAL 10,000 UNITS SC SCH (12:51)
[2022-05-26] MEDS: NEURONTIN CAP 300 MG PO SCH (20:49)
[2022-05-26] MEDS: KLONOPIN TAB 0.5 MG PO SCH (20:50)
[2022-05-27] MEDS: NS 1,000 ML IV 1,000 ML IV SCH ×3 (01:23→14:30)
[2022-05-27] MEDS: DUONEB 0.5 MG/3 MG (3 mL) NEB SCH ×2 (06:00→14:00)
[2022-05-27 06:27] LABS: BASOPHILS # (AUTO) 0.1 X10^3/uL (0.0-0.1); BASOPHILS % (AUTO) 0.8 % (0.2-1.0); EOSINOPHILS # (AUTO) 0.2 x10^3/uL (0.0-0.2); EOSINOPHILS % (AUTO) 2.4 % (0.9-2.9); HEMATOCRIT 25.8 % (42.0-54.0); HEMOGLOBIN 8.5 g/dL (13.5-18.0); LYMPHOCYTES # (AUTO) 0.8 X10^3/uL (1.3-2.9); LYMPHOCYTES % (AUTO) 8.3 % (21.0-51.0); MEAN CORPUSCULAR HEMOGLOBIN 28.9 pg (27.0-34.0); MEAN CORPUSCULAR VOLUME 87.6 fL (80.0-100.0); MEAN PLATELET VOLUME 7.3 fL (7.4-11.0); MONOCYTES # (AUTO) 0.5 x10^3/uL (0.3-0.8); MONOCYTES % (AUTO) 5.5 % (0.0-13.0); NEUTROPHILS # (AUTO) 8.3 x10^3/uL (2.2-4.8); RED BLOOD COUNT 2.94 X10^6/uL (4.7-6.0)
[2022-05-27 06:40] LABS: ALANINE AMINOTRANSFERASE 33 Units/L (12-78); ALBUMIN 2.9 g/dL (3.4-5.0); ALKALINE PHOSPHATASE 72 Units/L (46-116); ASPARTATE AMINO TRANSFERASE 13 Units/L (15-37); BLOOD UREA NITROGEN 57 mg/dL (7-18); CALCIUM 7.8 mg/dL (8.5-10.1); CARBON DIOXIDE 19.9 mmol/L (21-32); CHLORIDE 111 mmol/L (98-107); COR CA(FOR HYPOALB) 8.7 mg/dL (8.5-10.1); CREATININE 7.51 mg/dL (0.70-1.30); SODIUM 143 mmol/L (136-145); TOTAL PROTEIN 5.7 g/dL (6.4-8.2); eGFR NON BLACK RACES 7 (>60)
[2022-05-27] MEDS: ASPIRIN 81 MG CHEWTAB PO SCH (09:29)
[2022-05-27] MEDS: SODIUM BICARBONATE TAB 650MG PO SCH ×2 (09:29→21:17)
[2022-05-27] MEDS: NICOTINE PATCH TD SCH (09:29)
[2022-05-27] MEDS: DITROPAN TAB 5 MG PO SCH ×2 (09:29→21:17)
[2022-05-27] MEDS: APRESOLINE TAB 25 MG PO SCH ×2 (09:29→21:17)
[2022-05-27] MEDS: CYMBALTA PO SCH (09:29)
[2022-05-27] MEDS: NORCO 5/325 MG TAB PO PRN (09:30)
[2022-05-27] MEDS: NORVASC TAB 10 MG PO SCH (09:30)
[2022-05-27] MEDS: BENTYL CAP 10 MG PO SCH ×4 (09:30→21:17)
[2022-05-27] MEDS: PROTONIX TAB 40 MG PO SCH (09:30)
[2022-05-27] MEDS ORDERED: DUONEB 0.5 MG/3 MG (3 mL) NEB PRN (14:53)
[2022-05-27] MEDS: ZOFRAN INJ 4 MG VIAL IVP PRN (17:05)
[2022-05-27] MEDS ORDERED: NYSTATIN SUSP ONE (17:07)
[2022-05-27] MEDS: NYSTATIN SUSP PO SCH ×2 (17:10→21:17)
[2022-05-27] MEDS: KLONOPIN TAB 0.5 MG PO SCH (21:17)
[2022-05-27] MEDS: NEURONTIN CAP 300 MG PO SCH (21:17)
[2022-05-28] MEDS ORDERED: STERILE WATER IRRIGATION IR ONE (04:15)
[2022-05-28] MEDS: NS 1,000 ML IV 1,000 ML IV SCH ×3 (04:44→17:34)
[2022-05-28] MEDS: NICOTINE PATCH TD SCH (09:10)
[2022-05-28] MEDS: NORVASC TAB 10 MG PO SCH (09:11)
[2022-05-28] MEDS: DITROPAN TAB 5 MG PO SCH ×2 (09:11→21:07)
[2022-05-28] MEDS: PROTONIX TAB 40 MG PO SCH (09:11)
[2022-05-28] MEDS: APRESOLINE TAB 25 MG PO SCH ×2 (09:11→21:07)
[2022-05-28] MEDS: SODIUM BICARBONATE TAB 650MG PO SCH ×2 (09:11→21:07)
[2022-05-28] MEDS: NYSTATIN SUSP PO SCH ×4 (09:11→21:08)
[2022-05-28] MEDS: CYMBALTA PO SCH (09:12)
[2022-05-28] MEDS: BENTYL CAP 10 MG PO SCH ×4 (09:12→21:07)
[2022-05-28] MEDS: ASPIRIN 81 MG CHEWTAB PO SCH (09:12)
[2022-05-28 09:41] LABS: BASOPHILS # (AUTO) 0.1 X10^3/uL (0.0-0.1); BASOPHILS % (AUTO) 1.2 % (0.2-1.0); EOSINOPHILS # (AUTO) 0.3 x10^3/uL (0.0-0.2); EOSINOPHILS % (AUTO) 4.1 % (0.9-2.9); HEMATOCRIT 25.2 % (42.0-54.0); HEMOGLOBIN 8.3 g/dL (13.5-18.0); LYMPHOCYTES # (AUTO) 0.7 X10^3/uL (1.3-2.9); LYMPHOCYTES % (AUTO) 8.5 % (21.0-51.0); MEAN CORPUSCULAR VOLUME 87.9 fL (80.0-100.0); MEAN PLATELET VOLUME 6.9 fL (7.4-11.0); MONOCYTES # (AUTO) 0.4 x10^3/uL (0.3-0.8); MONOCYTES % (AUTO) 4.7 % (0.0-13.0); NEUTROPHILS # (AUTO) 6.8 x10^3/uL (2.2-4.8); NEUTROPHILS % (AUTO) 81.5 % (42.0-75.0); RED BLOOD COUNT 2.87 X10^6/uL (4.7-6.0); RED CELL DISTRIBUTION WIDTH 17.2 % (11.6-16.5); WHITE BLOOD COUNT 8.4 X10^3/uL (3.6-10.0)
[2022-05-28 10:04] LABS: ALANINE AMINOTRANSFERASE 29 Units/L (12-78); ALBUMIN 2.9 g/dL (3.4-5.0); ALKALINE PHOSPHATASE 66 Units/L (46-116); ASPARTATE AMINO TRANSFERASE 12 Units/L (15-37); BLOOD UREA NITROGEN 56 mg/dL (7-18); CALCIUM 7.8 mg/dL (8.5-10.1); CARBON DIOXIDE 19.8 mmol/L (21-32); CHLORIDE 110 mmol/L (98-107); COR CA(FOR HYPOALB) 8.7 mg/dL (8.5-10.1); CREATININE 7.41 mg/dL (0.70-1.30); SODIUM 141 mmol/L (136-145); TOTAL PROTEIN 5.8 g/dL (6.4-8.2); eGFR NON BLACK RACES 8 (>60)
[2022-05-28] MEDS ORDERED: KAYEXALATE SUSP PO NR (11:00)
[2022-05-28] MEDS: NORCO 5/325 MG TAB PO PRN (14:02)
[2022-05-28] MEDS: NEURONTIN CAP 300 MG PO SCH (21:07)
[2022-05-28] MEDS: KLONOPIN TAB 0.5 MG PO SCH (21:08)
[2022-05-29] MEDS: NS 1,000 ML IV 1,000 ML IV SCH ×3 (06:01→21:37)
[2022-05-29 06:12] LABS: BASOPHILS # (AUTO) 0.1 X10^3/uL (0.0-0.1); BASOPHILS % (AUTO) 1.3 % (0.2-1.0); EOSINOPHILS # (AUTO) 0.4 x10^3/uL (0.0-0.2); EOSINOPHILS % (AUTO) 6.1 % (0.9-2.9); HEMATOCRIT 22.2 % (42.0-54.0); HEMOGLOBIN 7.4 g/dL (13.5-18.0); LYMPHOCYTES # (AUTO) 0.7 X10^3/uL (1.3-2.9); LYMPHOCYTES % (AUTO) 11.4 % (21.0-51.0); MEAN CORPUSCULAR HEMOGLOBIN 29.4 pg (27.0-34.0); MEAN CORPUSCULAR HGB CONC 33.5 g/dL (33.0-35.0); MEAN CORPUSCULAR VOLUME 87.8 fL (80.0-100.0); MEAN PLATELET VOLUME 7.1 fL (7.4-11.0); MONOCYTES # (AUTO) 0.4 x10^3/uL (0.3-0.8); MONOCYTES % (AUTO) 6.2 % (0.0-13.0); NEUTROPHILS # (AUTO) 4.7 x10^3/uL (2.2-4.8); RED BLOOD COUNT 2.53 X10^6/uL (4.7-6.0); RED CELL DISTRIBUTION WIDTH 16.7 % (11.6-16.5); WHITE BLOOD COUNT 6.3 X10^3/uL (3.6-10.0)
[2022-05-29 06:24] LABS: ALANINE AMINOTRANSFERASE 25 Units/L (12-78); ALBUMIN 2.5 g/dL (3.4-5.0); ALKALINE PHOSPHATASE 60 Units/L (46-116); ASPARTATE AMINO TRANSFERASE 10 Units/L (15-37); BLOOD UREA NITROGEN 55 mg/dL (7-18); CALCIUM 7.5 mg/dL (8.5-10.1); CARBON DIOXIDE 18.7 mmol/L (21-32); CHLORIDE 111 mmol/L (98-107); COR CA(FOR HYPOALB) 8.7 mg/dL (8.5-10.1); CREATININE 7.11 mg/dL (0.70-1.30); SODIUM 142 mmol/L (136-145); TOTAL PROTEIN 5.1 g/dL (6.4-8.2); eGFR NON BLACK RACES 8 (>60)
--- NOTE | 2022-05-29 08:55 | PCM.PROG ---
Progress Note - Progress Note for Day of Date of Exam: 05/19/22 - Subjective Subjective: IS CURRENTLY INPATIENT, SWINGBED STATUS FOR TREATMENT OF ACUTE KIDNEY FAILURE, URINARY OUTLET OBSTRUCTION, GENERALIZED WEAKNESS, AND DECONDITIONING. UROLOGIST SUGGESTS THAT OBSTRUCTION IS LIKELY DUE TO MASS OF THE PROSTATE. TODAY, HE IS ALERT AND ORIENTED, LYING IN BED ON MORNING ROUNDS. HE CONTINUES WITH COMPLAINTS OF GENERALIZED WEAKNESS. HE HAS BEEN AMBULATING AND PARTICIPATING WELL WITH PHYSICAL THERAPY. HE DOES ADMIT TO SOME INTERMITTENT ABDOMINAL CRAMPING THIS MORNING. ON EXAMINATION, HEART IS REGULAR IN RATE AND RHYTHM. BILATERAL LUNGS ARE CLEAR TO AUSCULTATION. ABDOMEN IS ROUND, SOFT, AND NOTED WITH MILD TENDERNESS TO THE LOWER QUADRANTS. NORMAL BOWEL SOUNDS NOTED IN ALL QUADRANTS. MCLEAN CATHETER NOTED TO BEDSIDE DRAINAGE. NO UPPER OR LOWER EXTREMITY EDEMA NOTED. HIS VITALS THIS MORNING ARE: 98.4-88-20-96%-145/63. LABS WERE OBTAINED. WBC 5.8, RBC 2.43, HGB 7.1, HCT 20.9, PLT COUNT 123, SODIUM 141, POTASSIUM 4.2, CHLORIDE 106, CARBON DIOXIDE 20.8, BUN 99, CREATININE 8.84, GLUCOSE 102, CALCIUM 7.8, AST 32, ALT 51, ALK PHOS 56, TOTAL PROTEIN 5.4, ALBUMIN 3.0. HE IS CURRENTLY RECEIVING ZYVOX 600MG IV Q12H, ROCEPHIN 1G IV DAILY, TYLENOL 650MG PO Q4H PRN, NORVASC 10MG DAILY, ECOTRIN 81MG PO DAILY, NEURONTIN 300MG PO HS, APRESOLINE 50MG PO BID, NICOTINE PATCH DAILY, ZOFRAN 4MG IV Q6H PRN, DITROPAN 5MG PO BID, PROTONIX 40MG DAILY, SODIUM BICARBONATE 650MG PO BID, AND ZANAFLEX 2MG PO HS PRN. TODAY, WE WILL ADD DICYCLOMINE 10MG PO QID. WE WILL DISCONTINUE HIS IV ANTIBIOTICS. WE WILL OBTAIN A KUB. OTHERWISE, WE WILL FOLLOW-UP WITH AM LABS AND CONTINUE TO MONITOR. TIME SPENT ON CLINICAL ASSESSMENT, REVIWING LABS AND IMAGING, DECISION MAKING, AND DOCUMENTATION GREATER THAN 45 MINUTES. - Past Medical Family Social History Past Med/Fam/Surg Hx: No changes since H&P Allergies: Allergies No Known Allergies Allergy (Verified 05/09/22 18:15) - Review of Systems ROS: No change since H&P - Vital Signs and I&O's Vital Signs: Temperature 98.9 F Pulse Rate [Left Brachial] 87 Pulse Rate 96 Respiratory Rate 20 Blood Pressure [Right Arm] 145/65 Blood Pressure [Left Arm] 171/75 O2 Sat by Pulse Oximetry 93 Intake and Output: Intake & Output 05/26/22 05/27/22 05/28/22 05/29/22 11:59 11:59 11:59 11:59 Intake Total 4563 / 4563 3448 / 3448 1991 / 1991 1628 / 1628 Output Total 2700 / 2700 2150 / 2150 2019 Balance 1863 / 1863 1298 / 1298 -28 / -28 -372 / -372 - Physical Exam Oriented: Normal Eyes: Normal Ear: Normal Nose: Normal Throat: Normal Cardiovascular: Normal : Other (MCLEAN CATHETER TO BEDSIDE DRAINAGE ) Auscultation: Bowel Sounds: Normal Palpation: Normal Tenderness: RLQ, LLQ, Suprapubic Skin: Normal Musculoskeletal: Normal Psychiatric: Normal Mood Description: Calm Affect: Normal Speech Pattern: Clear, Appropriate - Laboratory and Diagnostics Result Diagrams: 05/29/22 05:08 05/29/22 05:08 Labs: Laboratory WBC 6.3 X10^3/uL (3.6-10.0) 05/29/22 05:08 RBC 2.53 X10^6/uL (4.7-6.0) L 05/29/22 05:08 Hgb 7.4 g/dL (13.5-18.0) L 05/29/22 05:08 Hct 22.2 % (42.0-54.0) L 05/29/22 05:08 MCV 87.8 fL (80.0-100.0) 05/29/22 05:08 MCH 29.4 pg (27.0-34.0) 05/29/22 05:08 MCHC 33.5 g/dL (33.0-35.0) 05/29/22 05:08 RDW 16.7 % (11.6-16.5) H 05/29/22 05:08 Plt Count 218 X10^3/uL (150.0-450.0) 05/29/22 05:08 Plt Count Comment Decreased (ADEQUATE) 05/18/22 04:40 MPV 7.1 fL (7.4-11.0) L 05/29/22 05:08 Neut % (Auto) 75.0 % (42.0-75.0) 05/29/22 05:08 Lymph % (Auto) 11.4 % (21.0-51.0) L 05/29/22 05:08 Grainger % (Auto) 6.2 % (0.0-13.0) 05/29/22 05:08 Eos % (Auto) 6.1 % (0.9-2.9) H 05/29/22 05:08 Baso % (Auto) 1.3 % (0.2-1.0) H 05/29/22 05:08 Neut # (Auto) 4.7 x10^3/uL (2.2-4.8) 05/29/22 05:08 Lymph # (Auto) 0.7 X10^3/uL (1.3-2.9) L 05/29/22 05:08 Grainger # (Auto) 0.4 x10^3/uL (0.3-0.8) 05/29/22 05:08 Eos # (Auto) 0.4 x10^3/uL (0.0-0.2) H 05/29/22 05:08 Baso # (Auto) 0.1 X10^3/uL (0.0-0.1) 05/29/22 05:08 Absolute Nucleated RBC 0.1 /100WBC 05/29/22 05:08 Plt Morphology Comment Normal (NORMAL) 05/18/22 04:40 RBC Morphology Abnormal (NORMAL) 05/18/22 04:40 Hypochromasia Slight A 05/18/22 04:40 Microcytosis Slight A 05/18/22 04:40 Schistocytes Present 05/18/22 04:40 Sodium 142 mmol/L (136-145) 05/29/22 05:08 Corrected Sodium TNP 05/29/22 05:08 Potassium 5.7 mmol/L (3.5-5.1) H 05/29/22 05:08 Chloride 111 mmol/L (98-107) H 05/29/22 05:08 Carbon Dioxide 18.7 mmol/L (21-32) L 05/29/22 05:08 BUN 55 mg/dL (7-18) H 05/29/22 05:08 Creatinine 7.11 mg/dL (0.70-1.30) H 05/29/22 05:08 Est GFR (MDRD) Af Amer 10 (>60) L 05/29/22 05:08 Est GFR (MDRD) Non-Af 8 (>60) L 05/29/22 05:08 Glucose 86 mg/dL (65-99) 05/29/22 05:08 POC Glucose (mg/dL) 137 mg/dL (65-99) H 05/17/22 19:42 Calcium 7.5 mg/dL (8.5-10.1) L 05/29/22 05:08 Corrected Calcium 8.7 mg/dL (8.5-10.1) 05/29/22 05:08 Magnesium 2.5 mg/dL (2.0-2.9) 05/18/22 04:40 Total Bilirubin 0.30 mg/dL (0.2-1.0) 05/29/22 05:08 AST 10 Units/L (15-37) L 05/29/22 05:08 ALT 25 Units/L (12-78) 05/29/22 05:08 Alkaline Phosphatase 60 Units/L (46-116) 05/29/22 05:08 Total Protein 5.1 g/dL (6.4-8.2) L 05/29/22 05:08 Albumin 2.5 g/dL (3.4-5.0) L 05/29/22 05:08 Globulin 2.6 g/dL (2.5-4.5) 05/29/22 05:08 Albumin/Globulin Ratio 1.0 Ratio (1.1-2.1) L 05/29/22 05:08 Stl Occult Blood (IFOB) Positive (NEGATIVE) A 05/28/22 17:58 Blood Type O NEGATIVE 05/25/22 10:00 Antibody Screen Negative 05/25/22 10:00 Crossmatch See Detail 05/25/22 10:00 - Plan (1) Urinary (tract) obstruction Status: Acute Plan: MCLEAN CATHETER TO BEDSIDE DRAINAGE, DICYCLOMINE 10MG PO QID, TYLENOL 650MG PO Q4H PRN, NORVASC 10MG DAILY, ECOTRIN 81MG PO DAILY, NEURONTIN 300MG PO HS, APRESOLINE 50MG PO BID, NICOTINE PATCH DAILY, ZOFRAN 4MG IV Q6H PRN, DITROPAN 5MG PO BID, PROTONIX 40MG DAILY, SODIUM BICARBONATE 650MG PO BID, AND ZANAFLEX 2MG PO HS PRN. (2) Hydronephrosis Status: Acute Qualifiers: Hydronephrosis type: unspecified Qualified Code(s): N13.30 - Unspecified hydronephrosis (3) Urinary tract infection Status: Resolved Qualifiers: Urinary tract infection type: acute cystitis Hematuria presence: without hematuria Qualified Code(s): N30.00 - Acute cystitis without hematuria (4) Acute kidney injury Status: Acute (5) Acute confusion Status: Acute (6) HTN (hypertension) Status: Chronic Qualifiers: Hypertension type: primary hypertension Qualified Code(s): I10 - Essential (primary) hypertension (7) Lumbar degenerative disc disease Status: Chronic
[2022-05-29] MEDS: NYSTATIN SUSP PO SCH ×2 (10:14→13:01)
[2022-05-29] MEDS: ASPIRIN 81 MG CHEWTAB PO SCH (10:14)
[2022-05-29] MEDS: PROTONIX TAB 40 MG PO SCH (10:14)
[2022-05-29] MEDS: DITROPAN TAB 5 MG PO SCH ×2 (10:15→21:36)
[2022-05-29] MEDS: NICOTINE PATCH TD SCH (10:15)
[2022-05-29] MEDS: NORVASC TAB 10 MG PO SCH (10:15)
[2022-05-29] MEDS: CYMBALTA PO SCH (10:15)
[2022-05-29] MEDS: SODIUM BICARBONATE TAB 650MG PO SCH (10:15)
[2022-05-29] MEDS: APRESOLINE TAB 25 MG PO SCH ×2 (10:15→21:36)
[2022-05-29] MEDS: BENTYL CAP 10 MG PO SCH ×2 (10:15→13:01)
--- NOTE | 2022-05-29 10:54 | PCM.PROG ---
Progress Note - Progress Note for Day of Date of Exam: 05/22/22 - Subjective Subjective: IS CURRENTLY INPATIENT, SWINGBED STATUS FOR TREATMENT OF ACUTE KIDNEY FAILURE, URINARY OUTLET OBSTRUCTION, GENERALIZED WEAKNESS, AND DECONDITIONING. UROLOGIST SUGGESTS THAT OBSTRUCTION IS LIKELY DUE TO MASS OF THE PROSTATE. TODAY, HE IS ALERT AND ORIENTED, LYING IN BED ON MORNING ROUNDS. HE CONTINUES WITH COMPLAINTS OF GENERALIZED WEAKNESS AND DIFFUSE, LOWER QUADRANT ABDOMINAL PAIN. HE HAS BEEN AMBULATING AND PARTICIPATING WELL WITH PHYSICAL THERAPY. ON EXAMINATION, HEART IS REGULAR IN RATE AND RHYTHM. BILATERAL LUNGS ARE CLEAR TO AUSCULTATION. ABDOMEN IS ROUND, SOFT, AND NOTED WITH MILD TENDERNESS TO THE LOWER QUADRANTS. HYPERACTIVE BOWEL SOUNDS NOTED. MCLEAN CATHETER NOTED WITH LEG BAG. NO UPPER OR LOWER EXTREMITY EDEMA NOTED. HIS VITALS THIS MORNING ARE: 98.4-92-20-96%-150/81. LABS WERE OBTAINED. WBC 6.3, RBC 2.61, HGB 7.6, HCT 22.7, PLT COUNT 139, SODIUM 138, POTASSIUM 5.2, CHLORIDE 105, BUN 80, CREATININE 8.42, CALCIUM 8.1, AST 24, ALT 49, ALK PHOS 66, TOTAL PROTEIN 6.0, ALBUMIN 3.3. HE IS CURRENTLY RECEIVING DICYCLOMINE 10MG PO QID, TYLENOL 650MG PO Q4H PRN, NORVASC 10MG DAILY, ECOTRIN 81MG PO DAILY, COLACE 200MG PO Q12H, NEURONTIN 300MG PO HS, APRESOLINE 50MG PO BID, NICOTINE PATCH DAILY, ZOFRAN 4MG IV Q6H PRN, DITROPAN 5MG PO BID, PROTONIX 40MG DAILY, SODIUM BICARBONATE 650MG PO BID, AND ZANAFLEX 2MG PO HS PRN. TODAY, WE WILL CHANGE COLACE TO PRN. WE WILL ADD PROCRIT 10,000 UNITS ON SUNDAY, SUNDAY, AND SUNDAY. OTHERWISE, WE WILL FOLLOW-UP WITH AM LABS AND CONTINUE TO MONITOR. TIME SPENT ON CLINICAL ASSESSMENT, REVIWING LABS AND IMAGING, DECISION MAKING, AND DOCUMENTATION GREATER THAN 45 MINUTES. - Past Medical Family Social History Past Med/Fam/Surg Hx: No changes since H&P Allergies: Allergies No Known Allergies Allergy (Verified 05/09/22 18:15) - Review of Systems ROS: No change since H&P - Vital Signs and I&O's Vital Signs: Temperature 98.9 F Pulse Rate [Left Brachial] 87 Pulse Rate 96 Respiratory Rate 20 Blood Pressure [Right Arm] 145/65 Blood Pressure [Left Arm] 171/75 O2 Sat by Pulse Oximetry 93 Intake and Output: Intake & Output 05/26/22 05/27/22 05/28/22 05/29/22 11:59 11:59 11:59 11:59 Intake Total 4563 / 4563 3448 / 3448 1991 / 1991 1628 / 1628 Output Total 2700 / 2700 215 / 2150 2019 Balance 1863 / 1863 1298 / 1298 -28 / -28 -372 / -372 - Physical Exam Oriented: Normal Eyes: Normal Ear: Normal Nose: Normal Throat: Normal Respiratory: Normal Cardiovascular: Normal : Other (MCLEAN CATHETER TO BEDSIDE DRAINAGE ) Auscultation: Bowel Sounds: Normal Palpation: Normal Tenderness: RLQ, LLQ, Suprapubic Skin: Normal Musculoskeletal: Normal Psychiatric: Normal Mood Description: Calm Affect: Normal Speech Pattern: Clear, Appropriate - Laboratory and Diagnostics Result Diagrams: 05/29/22 05:08 05/29/22 05:08 Labs: Laboratory WBC 6.3 X10^3/uL (3.6-10.0) 05/29/22 05:08 RBC 2.53 X10^6/uL (4.7-6.0) L 05/29/22 05:08 Hgb 7.4 g/dL (13.5-18.0) L 05/29/22 05:08 Hct 22.2 % (42.0-54.0) L 05/29/22 05:08 MCV 87.8 fL (80.0-100.0) 05/29/22 05:08 MCH 29.4 pg (27.0-34.0) 05/29/22 05:08 MCHC 33.5 g/dL (33.0-35.0) 05/29/22 05:08 RDW 16.7 % (11.6-16.5) H 05/29/22 05:08 Plt Count 218 X10^3/uL (150.0-450.0) 05/29/22 05:08 Plt Count Comment Decreased (ADEQUATE) 05/18/22 04:40 MPV 7.1 fL (7.4-11.0) L 05/29/22 05:08 Neut % (Auto) 75.0 % (42.0-75.0) 05/29/22 05:08 Lymph % (Auto) 11.4 % (21.0-51.0) L 05/29/22 05:08 [place] % (Auto) 6.2 % (0.0-13.0) 05/29/22 05:08 Eos % (Auto) 6.1 % (0.9-2.9) H 05/29/22 05:08 Baso % (Auto) 1.3 % (0.2-1.0) H 05/29/22 05:08 Neut # (Auto) 4.7 x10^3/uL (2.2-4.8) 05/29/22 05:08 Lymph # (Auto) 0.7 X10^3/uL (1.3-2.9) L 05/29/22 05:08 [place] # (Auto) 0.4 x10^3/uL (0.3-0.8) 05/29/22 05:08 Eos # (Auto) 0.4 x10^3/uL (0.0-0.2) H 05/29/22 05:08 Baso # (Auto) 0.1 X10^3/uL (0.0-0.1) 05/29/22 05:08 Absolute Nucleated RBC 0.1 /100WBC 05/29/22 05:08 Plt Morphology Comment Normal (NORMAL) 05/18/22 04:40 RBC Morphology Abnormal (NORMAL) 05/18/22 04:40 Hypochromasia Slight A 05/18/22 04:40 Microcytosis Slight A 05/18/22 04:40 Schistocytes Present 05/18/22 04:40 Sodium 142 mmol/L (136-145) 05/29/22 05:08 Corrected Sodium TNP 05/29/22 05:08 Potassium 5.7 mmol/L (3.5-5.1) H 05/29/22 05:08 Chloride 111 mmol/L (98-107) H 05/29/22 05:08 Carbon Dioxide 18.7 mmol/L (21-32) L 05/29/22 05:08 BUN 55 mg/dL (7-18) H 05/29/22 05:08 Creatinine 7.11 mg/dL (0.70-1.30) H 05/29/22 05:08 Est GFR (MDRD) Af Amer 10 (>60) L 05/29/22 05:08 Est GFR (MDRD) Non-Af 8 (>60) L 05/29/22 05:08 Glucose 86 mg/dL (65-99) 05/29/22 05:08 POC Glucose (mg/dL) 137 mg/dL (65-99) H 05/17/22 19:42 Calcium 7.5 mg/dL (8.5-10.1) L 05/29/22 05:08 Corrected Calcium 8.7 mg/dL (8.5-10.1) 05/29/22 05:08 Magnesium 2.5 mg/dL (2.0-2.9) 05/18/22 04:40 Total Bilirubin 0.30 mg/dL (0.2-1.0) 05/29/22 05:08 AST 10 Units/L (15-37) L 05/29/22 05:08 ALT 25 Units/L (12-78) 05/29/22 05:08 Alkaline Phosphatase 60 Units/L (46-116) 05/29/22 05:08 Total Protein 5.1 g/dL (6.4-8.2) L 05/29/22 05:08 Albumin 2.5 g/dL (3.4-5.0) L 05/29/22 05:08 Globulin 2.6 g/dL (2.5-4.5) 05/29/22 05:08 Albumin/Globulin Ratio 1.0 Ratio (1.1-2.1) L 05/29/22 05:08 Stl Occult Blood (IFOB) Positive (NEGATIVE) A 05/28/22 17:58 Blood Type O NEGATIVE 05/25/22 10:00 Antibody Screen Negative 05/25/22 10:00 Crossmatch See Detail 05/25/22 10:00 - Plan (1) Urinary (tract) obstruction Status: Acute Plan: MCLEAN CATHETER WITH LEG BAG, PROCRIT 10,000 UNITS ON M,W,F. DICYCLOMINE 10MG PO QID, TYLENOL 650MG PO Q4H PRN, NORVASC 10MG DAILY, ECOTRIN 81MG PO DAILY, NEURONTIN 300MG PO HS, APRESOLINE 50MG PO BID, NICOTINE PATCH DAILY, ZOFRAN 4MG IV Q6H PRN, DITROPAN 5MG PO BID, PROTONIX 40MG DAILY, SODIUM BICARBONATE 650MG PO BID, COLACE 200MG PO BID PRN, AND ZANAFLEX 2MG PO HS PRN. (2) Hydronephrosis Status: Acute Qualifiers: Hydronephrosis type: unspecified Qualified Code(s): N13.30 - Unspecified hydronephrosis (3) Acute kidney injury Status: Acute (4) Abdominal pain Status: Acute Qualifiers: Abdominal location: lower abdomen, unspecified Qualified Code(s): R10.30 - Lower abdominal pain, unspecified (5) Acute confusion Status: Acute (6) HTN (hypertension) Status: Chronic Qualifiers: Hypertension type: primary hypertension Qualified Code(s): I10 - Essential (primary) hypertension (7) Lumbar degenerative disc disease Status: Chronic
[2022-05-29] MEDS ORDERED: LEVAQUIN PREMIX IV 750 MG 750 MG/150 ML BAG IV NR (11:00)
--- NOTE | 2022-05-29 11:06 | PCM.PROG ---
Progress Note - Progress Note for Day of Date of Exam: 05/25/22 - Subjective Subjective: IS CURRENTLY INPATIENT, SWINGBED STATUS FOR TREATMENT OF ACUTE KIDNEY FAILURE, URINARY OUTLET OBSTRUCTION, GENERALIZED WEAKNESS, AND DECONDITIONING. UROLOGIST SUGGESTS THAT OBSTRUCTION IS LIKELY DUE TO MASS OF THE PROSTATE. TODAY, HE IS ALERT AND ORIENTED, LYING IN BED ON MORNING ROUNDS. HE CONTINUES WITH COMPLAINTS OF GENERALIZED WEAKNESS. HE HAS BEEN AMBULATING AND PARTICIPATING WELL WITH PHYSICAL THERAPY. ON EXAMINATION, HEART IS REGULAR IN RATE AND RHYTHM. BILATERAL LUNGS ARE CLEAR TO AUSCULTATION. ABDOMEN IS ROUND, SOFT, AND NOTED WITH MILD TENDERNESS TO THE LOWER QUADRANTS. HYPERACTIVE BOWEL SOUNDS NOTED. MCLEAN CATHETER NOTED WITH LEG BAG. NO UPPER OR LOWER EXTREMITY E ANUJA NOTED. HIS VITALS THIS MORNING ARE: 98.2-91-20-95%-137/61. LABS WERE OBTAINED. WBC 8.8, RBC 2.40, HGB 7.0, HCT 21.2, PLT COUNT 211, SODIUM 140, POTASSIUM 6.2, CHLORIDE 109, BUN 67, CREATININE 7.97, GFR 7, GLUCOSE 92, CALCIUM 7.9, AST 16, ALT 38, ALK PHOS 71, TOTAL PROTEIN 5.8, ALBUMIN 3.1. HE IS CURRENTLY RECEIVING DICYCLOMINE 10MG PO QID, TYLENOL 650MG PO Q4H PRN, NORVASC 10MG DAILY, ECOTRIN 81MG PO DAILY, COLACE 200MG PO Q12H PRN, NEURONTIN 300MG PO HS, APRESOLINE 50MG PO BID, NICOTINE PATCH DAILY, ZOFRAN 4MG IV Q6H PRN, DITROPAN 5MG PO BID, PROTONIX 40MG DAILY, SODIUM BICARBONATE 650MG PO BID, ZANAFLEX 2MG PO HS PRN, AND PROCRIT 10,000 UNITS ON SUNDAY, SUNDAY, AND SUNDAY. TODAY, WE ORDER A DOSE OF KAYEXALATE FOR HYPERKALEMIA. WE WILL TRANSFUSE TWO UNITS OF PACKED RED BLOOD CELLS AND ADMINISTER LASIX 20MG IV X 1 DOSE IN BETWEEN UNITS. OTHERWISE, WE WILL FOLLOW-UP WITH AM LABS AND CONTINUE TO MONITOR. TIME SPENT ON CLINICAL ASSESSMENT, REVIWING LABS AND IMAGING, DECISION MAKING, AND DOCUMENTATION GREATER THAN 45 MINUTES. - Past Medical Family Social History Past Med/Fam/Surg Hx: No changes since H&P Allergies: Allergies No Known Allergies Allergy (Verified 05/09/22 18:15) - Review of Systems ROS: No change since H&P - Vital Signs and I&O's Vital Signs: Temperature 98.9 F Pulse Rate [Left Brachial] 87 Pulse Rate 96 Respiratory Rate 20 Blood Pressure [Right Arm] 145/65 Blood Pressure [Left Arm] 171/75 O2 Sat by Pulse Oximetry 93 Intake and Output: Intake & Output 05/26/22 05/27/22 05/28/22 05/29/22 11:59 11:59 11:59 11:59 Intake Total 4563 / 4563 3448 / 3448 1991 / 1991 1628 / 1628 Output Total 2700 / 2700 2150 / 2150 2019 Balance 1863 / 1863 1298 / 1298 -28 / -28 -372 / -372 - Physical Exam Oriented: Normal Eyes: Normal Ear: Normal Nose: Normal Throat: Normal Respiratory: Normal Cardiovascular: Normal : Other (MCLEAN CATHETER TO BEDSIDE DRAINAGE ) Auscultation: Bowel Sounds: Normal Palpation: Normal Tenderness: RLQ, LLQ, Suprapubic Skin: Normal Musculoskeletal: Normal Psychiatric: Normal Mood Description: Calm Affect: Normal Speech Pattern: Clear, Appropriate - Laboratory and Diagnostics Result Diagrams: 05/29/22 05:08 05/29/22 05:08 Labs: Laboratory WBC 6.3 X10^3/uL (3.6-10.0) 05/29/22 05:08 RBC 2.53 X10^6/uL (4.7-6.0) L 05/29/22 05:08 Hgb 7.4 g/dL (13.5-18.0) L 05/29/22 05:08 Hct 22.2 % (42.0-54.0) L 05/29/22 05:08 MCV 87.8 fL (80.0-100.0) 05/29/22 05:08 MCH 29.4 pg (27.0-34.0) 05/29/22 05:08 MCHC 33.5 g/dL (33.0-35.0) 05/29/22 05:08 RDW 16.7 % (11.6-16.5) H 05/29/22 05:08 Plt Count 218 X10^3/uL (150.0-450.0) 05/29/22 05:08 Plt Count Comment Decreased (ADEQUATE) 05/18/22 04:40 MPV 7.1 fL (7.4-11.0) L 05/29/22 05:08 Neut % (Auto) 75.0 % (42.0-75.0) 05/29/22 05:08 Lymph % (Auto) 11.4 % (21.0-51.0) L 05/29/22 05:08 [place] % (Auto) 6.2 % (0.0-13.0) 05/29/22 05:08 Eos % (Auto) 6.1 % (0.9-2.9) H 05/29/22 05:08 Baso % (Auto) 1.3 % (0.2-1.0) H 05/29/22 05:08 Neut # (Auto) 4.7 x10^3/uL (2.2-4.8) 05/29/22 05:08 Lymph # (Auto) 0.7 X10^3/uL (1.3-2.9) L 05/29/22 05:08 [place] # (Auto) 0.4 x10^3/uL (0.3-0.8) 05/29/22 05:08 Eos # (Auto) 0.4 x10^3/uL (0.0-0.2) H 05/29/22 05:08 Baso # (Auto) 0.1 X10^3/uL (0.0-0.1) 05/29/22 05:08 Absolute Nucleated RBC 0.1 /100WBC 05/29/22 05:08 Plt Morphology Comment Normal (NORMAL) 05/18/22 04:40 RBC Morphology Abnormal (NORMAL) 05/18/22 04:40 Hypochromasia Slight A 05/18/22 04:40 Microcytosis Slight A 05/18/22 04:40 Schistocytes Present 05/18/22 04:40 Sodium 142 mmol/L (136-145) 05/29/22 05:08 Corrected Sodium TNP 05/29/22 05:08 Potassium 5.7 mmol/L (3.5-5.1) H 05/29/22 05:08 Chloride 111 mmol/L (98-107) H 05/29/22 05:08 Carbon Dioxide 18.7 mmol/L (21-32) L 05/29/22 05:08 BUN 55 mg/dL (7-18) H 05/29/22 05:08 Creatinine 7.11 mg/dL (0.70-1.30) H 05/29/22 05:08 Est GFR (MDRD) Af Amer 10 (>60) L 05/29/22 05:08 Est GFR (MDRD) Non-Af 8 (>60) L 05/29/22 05:08 Glucose 86 mg/dL (65-99) 05/29/22 05:08 POC Glucose (mg/dL) 137 mg/dL (65-99) H 05/17/22 19:42 Calcium 7.5 mg/dL (8.5-10.1) L 05/29/22 05:08 Corrected Calcium 8.7 mg/dL (8.5-10.1) 05/29/22 05:08 Magnesium 2.5 mg/dL (2.0-2.9) 05/18/22 04:40 Total Bilirubin 0.30 mg/dL (0.2-1.0) 05/29/22 05:08 AST 10 Units/L (15-37) L 05/29/22 05:08 ALT 25 Units/L (12-78) 05/29/22 05:08 Alkaline Phosphatase 60 Units/L (46-116) 05/29/22 05:08 Total Protein 5.1 g/dL (6.4-8.2) L 05/29/22 05:08 Albumin 2.5 g/dL (3.4-5.0) L 05/29/22 05:08 Globulin 2.6 g/dL (2.5-4.5) 05/29/22 05:08 Albumin/Globulin Ratio 1.0 Ratio (1.1-2.1) L 05/29/22 05:08 Stl Occult Blood (IFOB) Positive (NEGATIVE) A 05/28/22 17:58 Blood Type O NEGATIVE 05/25/22 10:00 Antibody Screen Negative 05/25/22 10:00 Crossmatch See Detail 05/25/22 10:00 - Plan (1) Urinary (tract) obstruction Status: Acute Plan: MCLEAN CATHETER WITH LEG BAG, PROCRIT 10,000 UNITS ON M,W,F. DICYCLOMINE 10MG PO QID, TYLENOL 650MG PO Q4H PRN, NORVASC 10MG DAILY, ECOTRIN 81MG PO DAILY, NEURONTIN 300MG PO HS, APRESOLINE 50MG PO BID, NICOTINE PATCH DAILY, ZOFRAN 4MG IV Q6H PRN, DITROPAN 5MG PO BID, PROTONIX 40MG DAILY, SODIUM BICARBONATE 650MG PO BID, COLACE 200MG PO BID PRN, AND ZANAFLEX 2MG PO HS PRN. (2) Hydronephrosis Status: Acute Qualifiers: Hydronephrosis type: unspecified Qualified Code(s): N13.30 - Unspecified hydronephrosis (3) Acute kidney injury Status: Acute (4) Abdominal pain Status: Acute Qualifiers: Abdominal location: lower abdomen, unspecified Qualified Code(s): R10.30 - Lower abdominal pain, unspecified (5) Anemia Status: Acute Qualifiers: Anemia type: due to chronic kidney disease Plan: TRANSFUSE 2 UNITS PRBC (6) Hyperkalemia Status: Acute Plan: KAYEXALATE X 1 DOSE (7) Acute confusion Status: Resolved (8) HTN (hypertension) Status: Chronic Qualifiers: Hypertension type: primary hypertension Qualified Code(s): I10 - Essential (primary) hypertension (9) Lumbar degenerative disc disease Status: Chronic
[2022-05-29] MEDS: PROCRIT or EPOGEN VIAL 10,000 UNITS SC SCH (13:06)
[2022-05-29] MEDS ORDERED: BENTYL CAP 10 MG PO PRN (13:10)
--- OUTSIDE RECORDS SUMMARY | 2022-05-29 16:02 | XMS | Continuity of Care Document ---
:1940 Author Organization [facility] er Patient Care Teams UNSPECIFIED HYDRONEPHROSIS Care Team (Active) (05/10/2022 - 05/15/2022) Member Role on Team Status Date GIOVANA VALENTE admitting physician Active 05/10/2022 MARYELLEN PEREIRA consulting physician Active MICHELE JARQUIN consulting physician Active 05/11/2022 ELIE NATHAN primary care physician Active 2022 ALIS ANDERSON consulting physician Active 05/10/2022 ALEJANDRO DEAN attending physician Active 023 NIKKI SHARMA consulting physician Active 05/10/19 23 Allergies and Intolerances No Known Drug Allergies Medications RxNorm Medication Dose Route Instructions Start End Status Date Date 19790608 24 HR nicotine 0.583 1 PATCH TRANSDERMAL ONCE A DAY Active MG/HR Transdermal 023 System 191817 acetaminophen 325 MG 650 MG ORAL EVERY 4 HOURS Active Oral Tablet NEEDED as 023 needed. (PRN TEMP OVER 101 CONTAINS ACETAMINOPHEN MAXIMUM DOSE 4GM/24 HOURS) 9154290 albuterol 0.833 1 VIAL INHALATION EVERY 8 HOURS Active MG/ML / ipratropium (PER 023 bromide 0.167 MG/ML RESPIRATORY Inhalation Solution THERAPY SCHEDULE) 699687 amlodipine 10 MG 10 mg oral orally daily Ac tive Oral Tablet Amoxicillin 500 mg oral orally 2 times Activ e per day (10 023 days) 730624 aspirin 81 MG 81 MG ORAL ONCE A DAY Active Chewable Tablet (CHEWABLE) 023 19740606 clonazepam 0.5 MG 0.5 mg oral orally 2 times Active Oral Tablet per day as needed. 414943 dicyclomine 20 mg oral orally 4 times Activ e hydrochloride 20 MG per day as Oral Tablet needed. Gabapentin 300 mg oral orally every Active day at bedtime 899254 hydralazine 50 mg oral orally 2 times Activ e hydrochloride 50 MG per day Oral Tablet 025356 oxybutynin chloride 5 MG ORAL TWICE A DAY Active 5 MG Oral Tablet ( ALERT 023 LOOK-ALIKE SOUND-ALIKE MEDICATION USE DOUBLE-CHECK PRECAUTION) 279250 pantoprazole 40 MG 40 MG ORAL ONCE A DAY A ctive Delayed Release Oral (PANTOPRAZOLE 023 Tablet TABLET, DELAYED RELEASE (E.C.) 40 MG 40 MG + PANTOPRAZOLE TABLET, DELAYED RELEASE (E.C.) 40 MG 40 MG ) 199937 sodium bicarbonate 650 MG ORAL TWICE A DAY Active 650 MG Oral Tablet 023 Tizanidine 2 mg oral orally every Active day at bedtime as needed. (1-2 every evening) 812904 ketorolac 10 mg oral orally every 6 Complet ed tromethamine 10 MG to 8 hours as Oral Tablet needed. Methylprednisolone 1 dose oral orally per Co mpleted pk package 023 directions Medications At Time Of Discharge RxNorm Medication Dose Route Instructions Start End Status Date Date 19790608 24 HR nicotine 1 PATCH TRANSDERMAL ONCE A DAY Active 0.583 MG/HR 3 Transdermal System 285838 acetaminophen 325 650 MG ORAL EVERY 4 HOURS Active MG Oral Tablet NEEDED as needed. 3 (PRN TEMP OVER 101 CONTAINS ACETAMINOPHEN MAXIMUM DOSE 4GM/24 HOURS) 9806487 albuterol 0.833 1 VIAL INHALATION EVERY 8 HOURS Active MG/ML / (PER RESPIRATORY 3 ipratropium THERAPY SCHEDULE) bromide 0.167 MG/ML Inhalation Solution 460853 amlodipine 10 MG 10 mg oral orally daily Ac tive Oral Tablet Amoxicillin 500 mg oral orally 2 times Act ernesto per day (10 days) 3 845536 aspirin 81 MG 81 MG ORAL ONCE A DAY Acti ve Chewable Tablet (CHEWABLE) 3 19740606 clonazepam 0.5 MG 0.5 mg oral orally 2 times Active Oral Tablet per day as needed. 833926 dicyclomine 20 mg oral orally 4 times Activ e hydrochloride 20 per day as MG Oral Tablet needed. Gabapentin 300 mg oral orally every day Acti ve at bedtime 359483 hydralazine 50 mg oral orally 2 times Activ e hydrochloride 50 per day MG Oral Tablet 582243 oxybutynin 5 MG ORAL TWICE A DAY Active chloride 5 MG ( ALERT 3 Oral Tablet LOOK-ALIKE SOUND-ALIKE MEDICATION USE DOUBLE-CHECK PRECAUTION) 388998 pantoprazole 40 40 MG ORAL ONCE A DAY Ac tive MG Delayed (PANTOPRAZOLE 3 Release Oral TABLET, DELAYED Tablet RELEASE (E.C.) 40 MG 40 MG + PANTOPRAZOLE TABLET, DELAYED RELEASE (E.C.) 40 MG 40 MG ) 061635 sodium 650 MG ORAL TWICE A DAY Active bicarbonate 650 3 MG Oral Tablet Tizanidine 2 mg oral orally every day Acti ve at bedtime as needed. (1-2 every evening) Problems No Data in the system Procedures Code Code System Procedure Date Status Notes CYSTOSCOPY WITH FULGURATION 05/11/2022 12:45 Co mpleted [id number] ICD-10 PCS IRRIG TRACT IRRIGAT SBSTNC ENDO 2022 Completed [id number] ICD-10 PCS DRN BLADDER DRN DEV SUSSY/ART OP ENDO 05/11 Completed 19521F9 ICD-10 PCS SILVEIRA NAUTO RED BLD CLL PERIPH VN PC 05/11 Completed Results Laboratory Results Order: ABG ANALYSIS /PH/PCO2/PO2 Specimen Source: Body Site: [facility] Test Result Flag Range Units Date 2743-04 PH 7.12 CL 7.35-7.45 05/10/2022 02:47 2078-8 PCO2 27 CL 35-45 mmhg 05/10/2022 02:47 2702-7 PO2 73 L 80-100 mmhg 05/10/2022 02:47 24415-8 THB 9.3 L 12.0-16.0 g/dL 05/10/2022 02:47 78981-2 O2HB 92.5 0.0-95.0 % 05/10/2022 02:47 2029-5 COHB 1.4 0.0-1.4 % 05/10/2022 02:47 2614-3 METHB 1.4 0.0-1.4 % 05/10/2022 02:47 8-6 SO2 95.2 94.0-98.9 % 05/10/2022 02:47 1922-4 BE (B) -19.0 L -2.0-2.0 mmol/L 05/10/2022 02:47 1960-4 HCO3 8.8 L 21.0-26.0 mmol/L 05/10/2022 02:47 14441-4 AADO2 93 mmhg 05/10/2022 02:47 87164-1 AGA TEST POS 02:47 O2 DEVICE # 1 Cannula 2022 02:47 43910-1 FIO2 28.0 % 05/10/2022 02:47 NOTIFIED BY POOL AGOSTO 2022 02:47 NOTIFIED TO 023 02:47 NOTES SEE BELOW 05/10/2022 02:47 Note: NOTIFIED SN DEVICE 16,167,584 02:47 SITE LR 05/10/2022 02:47 O2 2.0 05/10/2022 02:47 SAMPLE TYPE ART 05/10/19 02:47 Order: AMMONIA Specimen Source: Body Site: LOINC Test Result Flag Range Units Date 12618-2 AMMONIA 29 11-35 umol/L 05/10/2022 02:40 Order: BMP- BASIC METABOLIC PANEL Specimen Source: Body Site: [facility] Test Result Flag Range Units Date 2951-2 SODIUM 142 135-145 mmol/L 05/10/2022 22:32 2823-3 POTASSIUM 5.5 H 3.6-5.2 mmol/L 05/10/2022 22:32 2075-0 CHLORIDE 112 H 97-108 mmol/L 05/10/2022 22:32 2028-9 TOTAL CO2 15 L 21-32 mmol/L 05/10/2022 22:32 35304-3 ANION GAP 15 6-16 mmol/L 05/10/2022 22:32 2345-7 GLUCOSE 193 H 70-110 mg/dL 05/10/2022 22:32 3094-0 BUN 102 CH 7-18 mg/dL 05/10/2022 22:32 Note: Repeated with Same S ample 2160-0 CREATININE 9.6 CH 0.8-1.3 mg/dL 22:32 Note: Repeated with Same S ample 46661-7 CALCIUM 8.1 L 8.5-10.1 mg/dL 05/10/2022 22:32 BUN/CREA RATIO 10.6 6.0-20.0 (CALC) 05/10 22:32 03095-6 OSMO (CALC) 328 H 273-304 mOsm/kg (CALC) 02/2023 22:32 Order: CBC/AUTOMATED DIFF Specimen Source: Body Site: LOINC Test Result Flag Range Units Date WBC 6.9 3.8-10.6 K/uL 05/15/2022 05:23 789-8 RBC 2.93 L 4.40-5.90 M/uL 05/15/2022 05:23 HGB 8.6 L 13.0-18.0 g/dL 05/15/2022 05:23 HCT 25.0 L 40.0-52.0 % 05/15/2022 05:23 MCV 85.4 80.0-100.0 fL 05:23 MCH 29.3 26.0-34.0 pg 05/15/2022 05:23 MCHC 34.3 32.0-36.0 g/dL 05/15/2022 05:23 777-3 PLATELET COUNT 186 150-440 K/uL 05/15 05:23 788-0 RDW 15.5 11.5-15.5 % 05/15/2022 05:23 02445-3 MPV 7.4 6.8-10.0 fL 05/15/2022 05:23 770-8 NEUTROPHILS 84.7 H 45.0-75.0 % 05/15/19 05:23 LYMPHOCYTES 9.6 L 20.0-45.0 % 05/15/19 05:23 MONOCYTES 5.4 2.0-12.0 % 05/15/2022 05:23 EOSINOPHILS 0.2 0.0-6.0 % 05/15/19 05:23 704-7 BASOPHILS 0.1 0.0-2.0 % 05/15/2022 05:23 751-8 NEUTROPHILS, ABSOLUTE 5.8 1.7-6.6 K/uL 05/15/2022 05:23 LYMPHOCYTES, ABSOLUTE 0.7 L 1.3-3.7 K/uL 05/15/2022 05:23 MONOCYTES, ABSOLUTE 0.4 0.4-0.9 K/uL 05/15/2022 05:23 43380-6 EOSINOPHILS, ABSOLUTE 0.0 0.0-0.4 K/uL 05/15/2022 05:23 BASOPHILS, ABSOLUTE 0.0 0.0-0.2 K/uL 05/15/2022 05:23 RBC MORPHOLOGY see below 05/15 05:23 Note: INDICES INDICATE RBC SCAN NOT REQUIRED Order: CK (TOTAL) Specimen Source: Body Site: [facility] Test Result Flag Range Units Date 2157-6 CK 36 21-215 U/L 05/10/2022 00:14 Order: CMP-COMPREHENSIVE METABOLIC PANEL 14 Specimen Source: Body Site: INC Test Result Flag Range Units Date 2951-2 SODIUM 137 135-145 mmol/L 05/15/2022 05:23 2823-3 POTASSIUM 3.9 3.6-5.2 mmol/L 05/15/2022 05:23 2075-0 CHLORIDE 103 97-108 mmol/L 05/15/2022 05:23 2028-9 TOTAL CO2 16 L 21-32 mmol/L 05/15/2022 05:23 55675-7 ANION GAP 18 H 6-16 mmol/L 05/15/2022 05:23 2345-7 GLUCOSE 112 H 70-110 mg/dL 05/15/2022 05:23 3094-0 BUN 137 CH 7-18 mg/dL 05/15/2022 05:23 42323-0 OSMO (CALC) 325 H 273-304 mOsm/kg (CALC) 05:23 2160-0 CREATININE 10.2 CH 0.8-1.3 mg/dL 05:23 Note: Repeated with Same S ample BUN/CREA RATIO 13.4 6.0-20.0 (CALC) 05/15 05:23 2885-2 TOTAL PROTEIN 5.7 L 6.4-8.2 g/dL 2022 05:23 43959-5 ALBUMIN 3.4 3.4-5.0 g/dL 05/15/2022 05:23 A/G RATIO 1.5 1.0-2.6 (CALC) 05/15/2022 05:23 1975-2 TOTAL BILIRUBIN 0.3 0.0-1.0 mg/dL 04/30 05:23 45672-5 CALCIUM 7.6 L 8.5-10.1 mg/dL 05/15/2022 05:23 6768-6 ALKALINE PHOS 65 50-136 U/L 2022 05:23 05421-0 AST (SGOT) 17 15-37 U/L 3 05:23 1743-4 ALT (SGPT) 27 L 30-65 U/L 3 05:23 Order: GLOMERULAR FILTRATION RATE Specimen Source: Body Site: [facility] Test Result Flag Range Units Date 38652-5 GFR, BLACK RACES 6.33 >60 05:23 09145-0 GFR, NON-BLACK RACES 5.23 >60 05/15/2022 05:23 Note: "GFR calculated from serum creatinine value" Order: HEMOGLOBIN/HEMATOCRIT Specimen Source: Body Site: LOINC Test Result Flag Range Units Date HGB 7.5 L 13.0-18.0 g/dL 05/11/2022 13:31 HCT 23.0 L 40.0-52.0 % 05/11/2022 13:31 Order: LACTIC ACID Specimen Source: Body Site: LOINC Test Result Flag Range Units Date 4-7 LACTIC ACID 0.2 L 0.4-2.0 mmol/L 05/10/19 00:14 Order: LIPID ANALYSIS (II) Specimen Source: Body Site: LOINC Test Result Flag Range Units Date 85206-7 CHOLESTEROL 110 0-200 mg/dL 05/11/19 05:43 2085-9 HDL CHOLESTEROL 37.0 35.0-80.0 mg/dL 04/30 05:43 CHOL/HDL RATIO 3.0 0.0-5.0 (CALC) 05/11 05:43 2571-8 TRIGLYCERIDE 65 30-200 mg/dL 023 05:43 07356-1 LDL (CALC) 60.0 0.0-130.0 mg/dL 05:43 VLDL (CALC) 13.0 mg/dL 05/11/19 05:43 Order: MAGNESIUM Specimen Source: Body Site: LOINC Test Result Flag Range Units Date 46240-3 MAGNESIUM 2.3 1.6-2.3 mg/dL 05/15/2022 05:23 Order: PHOSPHORUS Specimen Source: Body Site: LOINC Test Result Flag Range Units Date 2777-1 PHOSPHORUS 7.7 H 2.5-4.9 mg/dL 3 00:14 Order: PSA, SCREEN Specimen Source: Body Site: LOINC Test Result Flag Range Units Date 2857-1 PSA,SCREEN 3.1 0.0-4.0 ng/ml 3 00:14 Note: TESTS PERFORMED BY Enrrique CASANOVA METHODOLOGY Order: SCAN SMEAR Specimen Source: Body Site: LOINC Test Result Flag Range Units Date SCAN SMEAR *PERFORMED* 023 05:55 Order: T4-FREE Specimen Source: Body Site: LOINC Test Result Flag Range Units Date 3024-7 T4, FREE 0.73 L 0.76-1.46 ng/dL 05/11/2022 05:43 Order: TROPONIN I Specimen Source: Body Site: LOINC Test Result Flag Range Units Date 17256-1 TROPONIN I 137.9 CH 4.0-60.0 ng/L 05:43 Order: TSH ULTRASENSITIVE Specimen Source: Body Site: LOINC Test Result Flag Range Units Date 44250-4 TSH, ULTRASENSITIVE 0.49 0.36-3.74 uIU/mL 05/11/2022 05:43 Order: URIC ACID Specimen Source: Body Site: LOINC Test Result Flag Range Units Date 3084-1 URIC ACID 7.7 H 3.5-7.2 mg/dL 05/10/2022 22:32 Order: URINALYSIS WITH MICRO Specimen Source: Body Site: LOINC Test Result Flag Range Units Date 49632-1 COLOR DARK YELLOW AB STRAW-YELLOW 05/10 09:20 68443-5 CLARITY SL CLOUDY CLEAR 05/10/2022 09:20 2965-2 SPECIFIC GRAVITY 1.020 1.003-1.029 0 05/10/2022 09:20 2756-5 PH 5.5 4.5-7.8 05/10/2022 09:20 2887-8 PROTEIN 2+ AB NEGATIVE 05/10/2022 09:20 2349-9 GLUCOSE 1+ AB NEGATIVE 05/10/2022 09:20 86920-8 KETONES NEGATIVE NEGATIVE 05/10/2022 09:20 1977-8 BILIRUBIN NEGATIVE NEGATIVE 05/10/2022 09:20 46967-8 BLOOD 3+ AB NEGATIVE 05/10/2022 09:20 94785-1 UROBILINOGEN NORMAL NORMAL 023 09:20 67772-7 NITRITE NEGATIVE NEGATIVE 05/10/2022 09:20 5799-2 LEUKOCYTE ESTERASE NEGATIVE NEGATIVE 0 05/10/2022 09:20 5821-4 WBC 0-2 0-5 /hpf 05/10/2022 09:20 28714-0 RBC >100 AB 0-3 /hpf 05/10/2022 09:20 96827-5 BACTERIA 1+ AB NEG-TRACE /hpf 05/10/2022 09:20 Order: TYPE & SCREEN Specimen Source: Body Site: LOINC Test Result Flag Range Units Date PATIENT: MARIA A Melvin MRN: [id number] LOC: PDS,219,05/11/2022 13:31 BILL# : [id number] : [birth year] SEX: M 05/11/2022 13:31 ORDERED BY: KELLI FUNG ERED : 05/11/2022 13:16 05/11/2022 13:31 COLLECTED: 05/11/2022 13:31 03/2023 13:31 ORDER : [id number] RECEIVED : 03/2023 13:38 05/11/2022 13:31 05/11/2022 13:31 ABO/Rh O NEG 05/11/22 15:33 LCM 05/11/2022 13:31 Antibody Screen NEG 05/11/22 15: 33 LCM 05/11/2022 13:31 05/11/2022 13:31 Order: XM PACKED RBC'S Specimen Source: Body Site: LOINC Test Result Flag Range Units Date PATIENT: MARIA A Melvin MRN: [id number] LOC: PDS,219,01 05/11/2022 13:31 BILL# : [id number] : [birth year] 43 SEX: M 05/11/2022 13:31 ORDERED BY: KELLI FUNG ERED : 05/11/2022 14:49 05/11/2022 13:31 COLLECTED: 05/11/2022 13:31 13:31 ORDER : [id number] RECEIVED : 04/30 13:38 05/11/2022 13:31 05/11/2022 13:31 [id number] p.Transfused 05/11 13:31 [id number] p.Transfused 05/11 13:31 05/11/2022 13:31 Order: CULTURE, BLOOD Specimen Source: Body Site: LOINC Test Result Flag Range Units Date Source: BLD Collected: 3 00:14 05/10/2022 00:14 Site: Rt. antecubital Received : 05/10/22 04:40 05/10/2022 00:14 CULTURE, BLOOD FINAL 05/15/22 05 :20 05/10/2022 00:14 05/11/22 No Growth at 1 days. 00:14 05/12/22 No Growth at 2 days. 00:14 05/13/22 No Growth at 3 days. 00:14 05/14/22 No Growth at 4 days. 00:14 05/15/22 No Growth in 5 days. 00:14 Order: CULTURE, URINE Specimen Source: Body Site: LOINC Test Result Flag Range Units Date Source: UA Collected: 05/11/22 12:45 05/11/2022 12:45 Site: INTRA-OP Received : 05/11 15:13 05/11/2022 12:45 CULTURE, URINE FINAL 05/13/22 08 :45 05/11/2022 12:45 05/13/22 No growth. 05/11/2022 1 2:45 Radiology Results Order: CT ABD PELVIS WOExam Completion Date:05/10/2022 02:10 STUDY: CT ABDOMEN AND PELVIS WITHOUT IV CONTRAST COMPARISON: None TECHNIQUE: Axial images were obtained of the abdomen and pelvis without IV contrast. Sagittal and coronal reformatted images were provided. All images were reviewed in a variety of windows and levels. RADIATION REDUCTION TECHNIQUE: Automated exposure control, adjustment of the mA or kV according to patient size, or iterative reconstruction techniques were used. HISTORY: Renal failure syndrome, elevated BUN and Creatine no contrast per ER. no priors available FINDINGS: Please note that lack of IV contrast does limit evaluation of thesoft tissues and vascular detail. The visualized lower lung zones demonstrates bilateral lower lobe consolidation which may represent acute or chronic airspace disease. The heart size is within normal limits. There is no evidence of a pericardial effusion. The liver, spleen, pancreas, adrenal glands, and kidneys are grossly unremarkable. The gallbladder is grossly unremarkable. Bilateral nonobstructing nephrolithiasis is noted. Enlarged prostate is noted causing invagination in the base of the urinary bladder. The prostate has an irregular contour and measures 65 x 67 mm. The urinary bladder is distended and measures 11.5 x 10.5 x 10 cm. This may be secondary to bladder outlet obstruction. Mild left hydroureter and hydronephrosis is seen without a visible stone. Moderate degree of calcified plaque burden is seen in the arterial vasculature of the abdomen pelvis. The stomach, small bowel, andcolon are grossly unremarkable. Moderate to large amount of fecal material is seen throughout the GItract suggesting constipation. There are no inflammatory changes in the right lower quadrant to suggest secondary signs of acute appendicitis. Partial visualization of the appendix is normal. The appendix is not seen in its entirety on this examination. There is no evidence of retroperitoneal or mesenteric lymphadenopathy. The visualized bones demonstrate degenerative changes. There are no concerninglytic or blastic lesions identified. IMPRESSION: - Bilateral lower lobe consolidation is seen which may represent acute or chronic airspace disease - Bilateral nonobstructing nephrolithiasis is seen with imaging features of the kidneys suggesting renal insufficiency - Enlarged prostate is noted measuring 65 x 67 mm causing invagination into the base of the urinary bladder which has an abnormal contour. There may be underlying prostate carcinoma. Follow-up with Urology may be obtained as clinically indicated. - The bladder is enlarged measuring 10 x 10.5 x 11.5 cm which may be secondary to bladder outlet obstruction Electronically signed by: Leonarda Pratt (May 10, 2022 03:08:26) Read By: LEONARDA PRATT MD Date: 05/10/2022 03:11Order: US KIDNEY BILATERALExam Completion Date:05/10/2022 01:33 STUDY: RENAL ULTRASOUND COMPARISON: CT dated 05/10/2022 TECHNIQUE: 123 images were provided for interpretation. HISTORY: Renal failure syndrome FINDINGS: RIGHT KIDNEY: The right kidney measures 7.2 x 4.4 x 3.8 cm and demonstrates hydronephrosis. Right renal cyst noted measuring 11 x 12 mm. LEFT KIDNEY: The left kidney measures 6 x 4.6 x 4.2 cm and demonstrates hydronephrosis URINARY BLADDER: The urinary bladder volume measures 825 cubic cm on the prevoid and 380 cubic cm on the postvoid. There is questionable urinary bladder wall thickening. Invagination noted in the urinary bladder most likely from an enlarged prostate. This was seen on the CT scan obtained on 05/10/2022. IMPRESSION: - Bilateral hydronephrosis is seen with enlarged urinary bladder an invagination of the urinary bladder most likely due to prostate. In addition, the residual postvoid volume suggest bladder outlet obstruction. Electronically signed by: Leonarda Pratt (May 10, 2022 03:59:31) Read By: LEONARDA PRATT MD Date: 05/10/2022 04:01 Social History Code Code System Social History Description Start Date End Date Observation [id number] SNOMED CT Current Smoking Never smoker Status UNK AdministrativeGender Sex Assigned At Unknown Vital Signs Code Code System Vitals Value Date 8310-5 LOINC Body Temperature 98.1 [degF] 05/15/2022 8865-8 LOINC Pulse Rate 89 {beats}/min 05/15/2022 9279-1 LOINC Respiratory Rate 20 /min 05/15/2022 36715-8 LOINC O2% BldC Oximetry 98 % 05/15/2022 8480-6 LOINC BP Systolic 136 mm[Hg] 05/15/2022 8462-4 LOINC BP Diastolic 60 mm[Hg] 05/15/2022 32342-8 LOINC Weight 61.2 kg 05/15/2022 3151-8 LOINC Inhaled Oxygen Flow Rate 3 liters per min [place] 05/11/2022 8302-2 LOINC Height 68 [in_i] 05/10/2022 Health Concerns No data in the systemEncounter Diagnosis Date Code Code System Diagnosis Status N13.30 ICD10 UNSPECIFIED HYDRONEPHROSIS A ctive Advance Directives DECLINED INFORMATION Directive Type Effective Date Gear Grinder Notes Supporting Document Name Address Phone No Directive Type 05/10/2022 Not Specified Not Specified Not Specified None No specified 12:00:00 AM NONE Directive Type Effective Date Gear Grinder Notes Supporting Document Name Address Phone No Directive Type 07/01/1999 6:01:00 Not Specified Not Specified Not Sp ecified None No specified PM Encounters Code Code System Encounter Diagnosis Location Date N13.30 ICD10 UNSPECIFIED HYDRONEPHROSIS [facility]ATRIC [facility] 05/10/2022 Family History Family history not obtained Functional Status Code Functional Condition Code System Date Status Supervise SNOMED CT 05/10/[address] 05/13/2022 Active Self care SNOMED CT 05/13/[address] 05/15/2022 Active Swallow without difficulty SNOMED CT 05/14/[address] A [address] Other SNOMED CT 05/14/[address] 05/10/[address] 05/12/2022 Active Swallow with problems SNOMED CT 05/11/[address] 05/12/2022 Active Bed bath SNOMED CT 05/15/2022 Active Underpads/chux SNOMED CT 05/15/2022 Active Dior catheter SNOMED CT 05/15/[address] changed [address] 05/15/[address] 05/15/2022 Active Facial hair/ removed SNOMED CT 05/15/[address] 05/15/2022 Active Medical Equipment No data in the system Mental Status Code Cognitive Condition Code System Date Status Pleasant SNOMED CT 05/15/[address] 05/15/[address] 05/10/[address] 05/15/[address] 05/11/[address] 05/15/2022 Active Lethargic- arouses only briefly to stimulation SNOMED CT 05/10/[address] 05/10/[address] 05/11/[address] 05/11/[address] 05/11/[address] 05/12/2022 Active Assessment and Plan Assessments No data in the systemPlan Of Treatment No data in the systemPending Tests Test Code Code System Test Start Date ARTERIAL BLOOD GAS 05/10/2022 01 :32 PSA, SCREEN 05/10/2022 12:02 Hospital Discharge Instructions Discharge InstructionsReferral During This Admission:Home Health CareSocial Service Consult Complete : Nurse to call before [id number]-[phone]) and [phone](f)For All Patients:If No Follow-Up Appt is Made at Time of Discharge Call 's Office Within 2 Weeks to SchedulePLEASE CALL [phone] YOU HAVE ANY QUESTIONS OR CONCERNS REGARDING YOUR RECENT ILLNESS OR HOSPITAL STAY*PLEASE KEEP THIS LIST OF YOUR MEDICATIONSBRING LIST TO EVERY DRS VISIT AND HOSPITAL VISIT*Do This:Always take each medication exactly as directed.Keep a list of all your medications and supplements, and share it with your doctors and pharmacists.Inform your physicians if you're taking [id number]-woewwan medications, vitamins, supplements or herbal remedies.Always try to use a single pharmacy to fill your prescriptions.Do Not Do This:Never stop taking medication or change the amount or timing without informing your physician.Never use somebody else's medication.Never use medication.No dataMedication Education for ALL PATIENTS:No dataNo dataThank you for choosing [facility].It is our goal to make sure you ALWAYS receive VERY GOOD care while you are here. You may receive a survey in the mail. Please take the time to fill it out because we appreciate your feedback. We hope you will score us as ALWAYS giving the VERY Best CareDischarge Instructions 2Any photos needed prior to discharge?N/ADo any tests or procedures need to be scheduled after discharge?NoValuables Placed In Safe Returned To Patient/FamilyN/A Patient/Family/OtherVerbalizes Understanding Of Discharge InstructionsAble To Return Demonstrate AppropriatelyReceived Copy Of Discharge InstructionsPneumonia vaccine indicatedPatient RefusesInfluenza vaccine indicatedPatient Refuses MedicationsNoneDoes Patient have any Pending Test or Results?No test or results pending.IF YOU RECEIVED A CARDIAC STENT THIS VISIT, PLEASE CALL [facility] AT [phone].No data Reason for Visit Reason for Visit AMS ACUTE ON CHRONIC RENAL FAILURE
[2022-05-29] MEDS: NEURONTIN CAP 300 MG PO SCH (21:35)
[2022-05-29] MEDS: ZANAFLEX PO PRN (21:35)
[2022-05-29] MEDS: NORCO 5/325 MG TAB PO PRN (21:36)
[2022-05-29] MEDS: KLONOPIN TAB 0.5 MG PO SCH (21:37)
[2022-05-30 07:13] LABS: BASOPHILS # (AUTO) 0.1 X10^3/uL (0.0-0.1); BASOPHILS % (AUTO) 1.3 % (0.2-1.0); EOSINOPHILS # (AUTO) 0.3 x10^3/uL (0.0-0.2); EOSINOPHILS % (AUTO) 6.5 % (0.9-2.9); HEMATOCRIT 23.3 % (42.0-54.0); HEMOGLOBIN 7.6 g/dL (13.5-18.0); LYMPHOCYTES # (AUTO) 0.7 X10^3/uL (1.3-2.9); LYMPHOCYTES % (AUTO) 13.1 % (21.0-51.0); MEAN CORPUSCULAR HEMOGLOBIN 28.9 pg (27.0-34.0); MEAN CORPUSCULAR HGB CONC 32.7 g/dL (33.0-35.0); MEAN CORPUSCULAR VOLUME 88.3 fL (80.0-100.0); MEAN PLATELET VOLUME 6.8 fL (7.4-11.0); MONOCYTES # (AUTO) 0.3 x10^3/uL (0.3-0.8); MONOCYTES % (AUTO) 6.4 % (0.0-13.0); NEUTROPHILS # (AUTO) 3.8 x10^3/uL (2.2-4.8); NEUTROPHILS % (AUTO) 72.7 % (42.0-75.0); RED BLOOD COUNT 2.64 X10^6/uL (4.7-6.0); WHITE BLOOD COUNT 5.2 X10^3/uL (3.6-10.0)
[2022-05-30 07:25] LABS: ALANINE AMINOTRANSFERASE 22 Units/L (12-78); ALBUMIN 2.5 g/dL (3.4-5.0); ALKALINE PHOSPHATASE 60 Units/L (46-116); ASPARTATE AMINO TRANSFERASE 11 Units/L (15-37); BLOOD UREA NITROGEN 49 mg/dL (7-18); CALCIUM 7.4 mg/dL (8.5-10.1); CARBON DIOXIDE 17.2 mmol/L (21-32); CHLORIDE 110 mmol/L (98-107); COR CA(FOR HYPOALB) 8.6 mg/dL (8.5-10.1); CREATININE 6.94 mg/dL (0.70-1.30); SODIUM 140 mmol/L (136-145); TOTAL PROTEIN 5.2 g/dL (6.4-8.2); eGFR NON BLACK RACES 8 (>60)
[2022-05-30] MEDS: ASPIRIN 81 MG CHEWTAB PO SCH (09:31)
[2022-05-30] MEDS: NICOTINE PATCH TD SCH (09:31)
[2022-05-30] MEDS: APRESOLINE TAB 25 MG PO SCH ×2 (09:31→21:43)
[2022-05-30] MEDS: CYMBALTA PO SCH (09:31)
[2022-05-30] MEDS: NORVASC TAB 10 MG PO SCH (09:31)
[2022-05-30] MEDS: PROTONIX TAB 40 MG PO SCH (09:31)
[2022-05-30] MEDS: DITROPAN TAB 5 MG PO SCH ×2 (09:34→21:43)
[2022-05-30] MEDS: NEURONTIN CAP 300 MG PO SCH (21:43)
[2022-05-30] MEDS: KLONOPIN TAB 0.5 MG PO SCH (21:43)
[2022-05-30] MEDS: ZANAFLEX PO PRN (21:44)
[2022-05-31] MEDS: NS 1,000 ML IV 1,000 ML IV SCH (04:22)
[2022-05-31 06:28] LABS: BASOPHILS # (AUTO) 0.1 X10^3/uL (0.0-0.1); BASOPHILS % (AUTO) 1.7 % (0.2-1.0); EOSINOPHILS # (AUTO) 0.3 x10^3/uL (0.0-0.2); EOSINOPHILS % (AUTO) 6.1 % (0.9-2.9); HEMATOCRIT 23.5 % (42.0-54.0); HEMOGLOBIN 7.8 g/dL (13.5-18.0); LYMPHOCYTES # (AUTO) 0.7 X10^3/uL (1.3-2.9); LYMPHOCYTES % (AUTO) 14.4 % (21.0-51.0); MEAN CORPUSCULAR HGB CONC 33.2 g/dL (33.0-35.0); MEAN CORPUSCULAR VOLUME 87.2 fL (80.0-100.0); MEAN PLATELET VOLUME 6.8 fL (7.4-11.0); MONOCYTES # (AUTO) 0.4 x10^3/uL (0.3-0.8); MONOCYTES % (AUTO) 7.6 % (0.0-13.0); NEUTROPHILS # (AUTO) 3.4 x10^3/uL (2.2-4.8); NEUTROPHILS % (AUTO) 70.2 % (42.0-75.0); RED CELL DISTRIBUTION WIDTH 16.5 % (11.6-16.5); WHITE BLOOD COUNT 4.9 X10^3/uL (3.6-10.0)
[2022-05-31 06:53] LABS: ALBUMIN 2.5 g/dL (3.4-5.0); CALCIUM 7.6 mg/dL (8.5-10.1); CARBON DIOXIDE 17.3 mmol/L (21-32); COR CA(FOR HYPOALB) 8.8 mg/dL (8.5-10.1); CREATININE 7.05 mg/dL (0.70-1.30); TOTAL PROTEIN 5.2 g/dL (6.4-8.2)
[2022-05-31] MEDS: PROTONIX TAB 40 MG PO SCH (08:33)
[2022-05-31] MEDS: NORVASC TAB 10 MG PO SCH (08:33)
[2022-05-31] MEDS: CYMBALTA PO SCH (08:33)
[2022-05-31] MEDS: NICOTINE PATCH TD SCH (08:34)
[2022-05-31] MEDS: DITROPAN TAB 5 MG PO SCH (08:34)
[2022-05-31] MEDS: ASPIRIN 81 MG CHEWTAB PO SCH (08:35)
[2022-05-31] MEDS: PROCRIT or EPOGEN VIAL 10,000 UNITS SC SCH ×2 (08:35→14:31)
[2022-05-31] MEDS: APRESOLINE TAB 25 MG PO SCH (08:35)
[2022-05-31 08:39] VITALS: BP 155/67
[2022-05-31] MEDS ORDERED: LEVAQUIN PREMIX IV 500 MG 500 MG/100 ML BAG IV SCH (09:00)
== END 2022-05-31 12:10 | disposition home or self-care (01) | DRG 699 ==
LOC: MED/SURG 17:41
PROVIDERS: ADMIT Internal Medicine; ATTEND Internal Medicine

== ENCOUNTER 2022-09-04 10:14 | Inpatient (IN) ==
[2022-09-04] MEDS ORDERED: NS 1,000 ML IV 1,000 ML ONE (11:03)
[2022-09-04] MEDS: NS 1,000 ML IV 1,000 ML IV SCH (11:18)
[2022-09-04 11:37] LABS: BASOPHILS # (AUTO) 0.1 X10^3/uL (0.0-0.1); BASOPHILS % (AUTO) 1.4 % (0.2-1.0); EOSINOPHILS # (AUTO) 0.1 x10^3/uL (0.0-0.2); EOSINOPHILS % (AUTO) 1.6 % (0.9-2.9); HEMATOCRIT 26.8 % (42.0-54.0); HEMOGLOBIN 8.7 g/dL (13.5-18.0); LYMPHOCYTES # (AUTO) 0.7 X10^3/uL (1.3-2.9); LYMPHOCYTES % (AUTO) 12.3 % (21.0-51.0); MEAN CORPUSCULAR HEMOGLOBIN 28.6 pg (27.0-34.0); MEAN CORPUSCULAR HGB CONC 32.4 g/dL (33.0-35.0); MEAN CORPUSCULAR VOLUME 88.1 fL (80.0-100.0); MEAN PLATELET VOLUME 7.2 fL (7.4-11.0); MONOCYTES # (AUTO) 0.3 x10^3/uL (0.3-0.8); MONOCYTES % (AUTO) 4.7 % (0.0-13.0); NEUTROPHILS # (AUTO) 4.8 x10^3/uL (2.2-4.8); PLATELET COUNT 171 X10^3/uL (150.0-450.0); RED BLOOD COUNT 3.04 X10^6/uL (4.7-6.0)
--- NOTE | 2022-09-04 11:37 | EKG ---
Test Reason : weakness Blood Pressure : */* mmHG Vent. Rate : 92 BPM Atrial Rate : 92 BPM P-R Int : 154 ms QRS Dur : 138 ms QT Int : 370 ms P-R-T Axes : 61 -38 73 degrees QTc Int : 457 ms Sinus rhythm with premature atrial complexes Left axis deviation Right bundle branch block Left ventricular hypertrophy ( Romhilt-Mathew ) Cannot rule out Anterior infarct , age undetermined Abnormal ECG No previous ECGs available Confirmed by Kendall Pollock ([id number]) on 09/06/2022 12:35:43 PM Referred By: Confirmed By: Kendall Pollock
[2022-09-04 11:41] LABS: ALANINE AMINOTRANSFERASE 15 Units/L (12-78); ALBUMIN 3.6 g/dL (3.4-5.0); ALKALINE PHOSPHATASE 57 Units/L (46-116); ASPARTATE AMINO TRANSFERASE 12 Units/L (15-37); BLOOD UREA NITROGEN 103 mg/dL (7-18); CALCIUM 7.9 mg/dL (8.5-10.1); CHLORIDE 105 mmol/L (98-107); CREATINE KINASE 52 Units/L (39-308); CREATININE 9.49 mg/dL (0.70-1.30); GLUCOSE 104 mg/dL (65-99); SODIUM 133 mmol/L (136-145); TOTAL PROTEIN 6.7 g/dL (6.4-8.2); eGFR NON BLACK RACES 6 (>60)
[2022-09-04 11:45] LABS: CARBON DIOXIDE 14.2 mmol/L (21-32); POTASSIUM 6.6 mmol/L (3.5-5.1)
[2022-09-04] MEDS: NICOTINE PATCH TD SCH (14:18)
[2022-09-04 15:04] LABS: BILIRUBIN,URINE NEGATIVE (NEGATIVE); BLOOD/HEMOGLOBIN,URINE 3+ (NEGATIVE); GLUCOSE, URINE 2+ (NEGATIVE); KETONES,URINE NEGATIVE (NEGATIVE); LEUKOCYTE ESTERASE ,URINE 3+ (NEGATIVE); NITRITES,URINE NEGATIVE (NEGATIVE); PROTEIN,URINE 3+ (NEGATIVE); UROBILINOGEN,URINE NORMAL (NORMAL)
[2022-09-04 15:17] LABS: APPEARANCE,URINE CLOUDY (CLEAR); COLOR,URINE YELLOW (YELLOW)
[2022-09-04 15:18] LABS: BACTERIA,URINE TRACE /HPF (NEGATIVE); SQUAMOUS EPITHELIAL CELL,UR RARE /HPF (NEGATIVE)
[2022-09-04 15:19] LABS: YEAST,URINE FEW /HPF (NEGATIVE)
[2022-09-04] MEDS ORDERED: ZANAFLEX PO PRN (17:08)
[2022-09-04] MEDS ORDERED: KLONOPIN TAB 0.5 MG PO PRN (17:08)
[2022-09-04] MEDS ORDERED: PERCOCET TAB 5/325 MG PO PRN (17:08)
[2022-09-04] MEDS: NORVASC TAB 10 MG PO SCH (17:36)
[2022-09-04] MEDS: INVanz INJ 1 GRAM VIAL 0.5 G in NS 50 ML IV 50 ML IV SCH (17:37)
[2022-09-04] MEDS ORDERED: ZOFRAN INJ 4 MG VIAL IVP PRN (19:12)
[2022-09-04] MEDS: NEURONTIN CAP 300 MG PO SCH (20:26)
[2022-09-04] MEDS: APRESOLINE TAB 25 MG PO SCH (20:26)
[2022-09-04] MEDS: FLOMAX PO SCH (20:26)
[2022-09-05] MEDS: NS 1,000 ML IV 1,000 ML IV SCH ×2 (00:11→14:05)
[2022-09-05 06:45] LABS: BASOPHILS # (AUTO) 0.1 X10^3/uL (0.0-0.1); BASOPHILS % (AUTO) 0.8 % (0.2-1.0); EOSINOPHILS % (AUTO) 0.3 % (0.9-2.9); HEMOGLOBIN 8.2 g/dL (13.5-18.0); LYMPHOCYTES # (AUTO) 0.6 X10^3/uL (1.3-2.9); LYMPHOCYTES % (AUTO) 8.4 % (21.0-51.0); MEAN CORPUSCULAR HEMOGLOBIN 29.3 pg (27.0-34.0); MEAN CORPUSCULAR HGB CONC 32.8 g/dL (33.0-35.0); MEAN CORPUSCULAR VOLUME 89.2 fL (80.0-100.0); MEAN PLATELET VOLUME 7.4 fL (7.4-11.0); MONOCYTES # (AUTO) 0.3 x10^3/uL (0.3-0.8); MONOCYTES % (AUTO) 4.5 % (0.0-13.0); NEUTROPHILS # (AUTO) 6.3 x10^3/uL (2.2-4.8); PLATELET COUNT 157 X10^3/uL (150.0-450.0); RED CELL DISTRIBUTION WIDTH 18.4 % (11.6-16.5); WHITE BLOOD COUNT 7.3 X10^3/uL (3.6-10.0)
[2022-09-05 06:55] LABS: ALANINE AMINOTRANSFERASE 13 Units/L (12-78); ALBUMIN 3.3 g/dL (3.4-5.0); ALKALINE PHOSPHATASE 51 Units/L (46-116); ASPARTATE AMINO TRANSFERASE 12 Units/L (15-37); BLOOD UREA NITROGEN 97 mg/dL (7-18); CALCIUM 7.6 mg/dL (8.5-10.1); CHLORIDE 111 mmol/L (98-107); COR CA(FOR HYPOALB) 8.2 mg/dL (8.5-10.1); CREATININE 9.41 mg/dL (0.70-1.30); GLUCOSE 76 mg/dL (65-99); SODIUM 138 mmol/L (136-145); eGFR NON BLACK RACES 6 (>60)
[2022-09-05 06:59] LABS: CARBON DIOXIDE 11.6 mmol/L (21-32); POTASSIUM 7.3 mmol/L (3.5-5.1)
[2022-09-05] MEDS: NICOTINE PATCH TD SCH (08:39)
[2022-09-05] MEDS: PROSCAR PO SCH (08:40)
[2022-09-05] MEDS: NORVASC TAB 10 MG PO SCH (08:40)
[2022-09-05] MEDS: CYMBALTA PO SCH (08:40)
[2022-09-05] MEDS: APRESOLINE TAB 25 MG PO SCH (08:42)
[2022-09-05] MEDS ORDERED: D50W ABBOJECT SYR IV ONE (09:55)
[2022-09-05] MEDS ORDERED: NovoLIN R (or HumuLIN R) IV ONE (09:55)
[2022-09-05] MEDS: NYSTATIN SUSP MT SCH ×4 (10:51→21:09)
--- NOTE | 2022-09-05 13:41 | DR.H&P ---
H&P - History & Physical for Day of: H&P Date: 09/04/22 - Chief Complaint Chief Complaint: WEAKNESS, DECREASED APPETITE, FATIGUE, AMS - History of Present Illness History of Present Illness: IS A 82 YEAR OLD PATIENT OF OURS. HE PRESE NTED TO THE OFFICE WITH COMPLAINTS OF INCREASED WEAKNESS, CONFUSION, AND DECREASED ORAL INTAKE. HE RECEIVED TWO UNITS OF PACKED RED BLOOD CELLS LAST WEEK DUE TO HGB OF 7.2. AFTER TRANSFUSION, HIS HGB INCREASED TO 9.5. HE DENIES SIGNIFICANT IMPROVEMENT IN WEAKNESS SINCE RECEIVING TRANSFUSIONS. HIS PMH INCLUDES: ANEMIA, HTN, GERD, BPH, RENAL DISEASE, DEGENERATIVE DISC DISEASE, RECENT RIGHT WRIST FRACTURE. DECISION WAS MADE TO ADMIT PATIENT TO THE HOSPITAL FOR FURTHER EVALUATION AND TREATMENT OF ACUTE ON CHRONIC RENAL FAILURE, GENERALIZED WEAKNESS, ANEMIA, AND FAILURE TO THRIVE. ON ARRIVAL TO THE HOSPITAL, HIS VITALS WERE: 97.4-86-18-97%-156/67. LABS WERE OBTAINED. WBC 6.0, RBC 3.04, HGB 8.7, HCT 26.8, PLT COUNT 171, SODIUM 133, POTASSIUM 6.6, CHLORIDE 105, CARBON DIOXIDE 14.2, BUN 103, CREATININE 9.49, GFR 6, GLUCOSE 104, CALCIUM 7.9, AST 12, ALT 15, ALK PHOS 57, CREATINE KINASE 52, TOTAL PROTEIN 6.7, ALBUMIN 3.6. URINALYSIS REVEALED: WBC TNTC, RBC 3-5, LEUKOCYTES 3+, BACTERIA TRACE, YEAST FEW. A URINE CULTURE WAS SET UP. EKG WAS OBTAINED AND REVEALED: SINUS RHYTHM WITH PREMATURE ATRIAL COMPLEXES. HR 92 BPM. HE WAS STARTED ON NORMAL SALINE AT 80 ML/HR, INVANZ 0.5MG IV DAILY, DIFLUCAN 100MG IV DAILY, ZOFRAN 4MG PRN, NYSTATIN SWISH AND SWALLOW QID, AND HIS HOME MEDICATIONS WERE RESUMED. HER HOME MEDS INCLUDE: AMLODIPINE, CLONAZEPAM, DULOXETINE, FINASTERIDE, GABAPENTIN, HYDRALAZINE, PERCOCET PRN, FLOMAZ, AND ZANAFLEX. OTHERWISE, WE WILL FOLLOW-UP WITH AM LABS AND CONTINUE TO MONITOR. TIME SPENT ON CLINICAL ASSESSMENT, REVIEWING LABS AND IMAGING, DECISION MAKING, AND DOCUMENTATION GREATER THAN 75 MINUTES. - Past Medical History Past Medical History: Anxiety, Arthritis, GERD, Hypertension, Renal Disease Additional Medical History: BPH, CHRONIC LOW BACK PAIN, DDD - Past Surgical History Surgical History: Other Additional Surgical History: INGUINAL HERNIA REPAIR, PROSTATE - Family History Family Medical History: Diabetes Mellitus, Cancer, [place], Hypertension - Social History Have you used tobacco products in the last 12 months: Yes Type of Tobacco Use: Cigarettes Does any household member use tobacco: No Alcohol Use: None Drug Use: None - Medications Home Medications: No Known Allergies Allergy (Verified 05/29/22 16:07) CONTINUE taking the following medications duloxetine 30 mg capsule,delayed release 30 mg PO DAILY 09/04/22 [History] finasteride 5 mg tablet 5 mg PO DAILY 09/04/22 [History] oxycodone-acetaminophen 5 mg-325 mg tablet 1 tab PO QID PRN Pain 09/04/22 [History] tamsulosin 0.4 mg capsule 0.4 mg PO HS 09/04/22 [History] torsemide 10 mg tablet 10 mg PO DAILY 09/04/22 [History] - Review of Systems Constitutional: Weakness Eyes: No Symptoms Reported ENT: No Symptoms Reported Respiratory: No Symptoms Reported Cardiovascular: No Symptoms Reported Gastrointestinal: No Symptoms Reported Genitourinary: No Symptoms Reported Musculoskeletal: No Symptoms Reported Skin: No Symptoms Reported Neurological: Weakness, Confusion - Physical Exam Vital Signs: Temperature 98.3 F Pulse Rate [Left Brachial] 106 Respiratory Rate 20 Blood Pressure [Left Arm] 136/63 Blood Pressure [Right Arm] 141/63 O2 Sat by Pulse Oximetry 92 Oriented: Normal Eyes: Normal Ear: Normal Nose: Normal Throat: Normal Respiratory: Diminished Throughout Cardiovascular: Normal : Normal Auscultation: Bowel Sounds: Normal Palpation: Normal Tenderness: Suprapubic, Mild Skin: Normal Musculoskeletal: Normal Psychiatric: Normal Mood Description: Calm Affect: Normal Speech Pattern: Clear - Assessment/Plan (1) Acute on chronic kidney failure Qualifiers: Acute renal failure type: unspecified Chronic kidney disease stage: stage 5, not on chronic dialysis Qualified Code(s): N17.9 - Acute kidney failure, unspecified; N18.5 - Chronic kidney disease, stage 5 Status: Acute Plan: ADMIT, NORMAL SALINE AT 80 ML/HR, INVANZ 0.5MG IV DAILY, DIFLUCAN 100MG IV DAILY, ZOFRAN 4MG PRN, NYSTATIN SWISH AND SWALLOW QID, AND HIS HOME MEDICATIONS WERE RESUMED. HER HOME MEDS INCLUDE: AMLODIPINE, CLONAZEPAM, DULOXETINE, FINASTERIDE, GABAPENTIN, HYDRALAZINE, PERCOCET PRN, FLOMAZ, AND ZANAFLEX. (2) Hyperkalemia Status: Acute (3) Generalized weakness Status: Acute (4) HTN (hypertension) Qualifiers: Hypertension type: primary hypertension Qualified Code(s): I10 - Essential (primary) hypertension Status: Chronic (5) Anemia Qualifiers: Anemia type: due to chronic kidney disease Status: Chronic (6) Lumbar degenerative disc disease Status: Chronic - Allergies Allergies/Adverse Reactions: Allergies Allergy/AdvReac Type Severity Reaction Status Date / Time No Known Allergies Allergy Verified 05/29/22 16:07
[2022-09-05] MEDS: DIFLUCAN 100 MG IV (MIX by PHARMACY)* 100 MG/50 ML BAG IV SCH (14:03)
[2022-09-05] MEDS: INVanz INJ 1 GRAM VIAL 0.5 G in NS 50 ML IV 50 ML IV SCH (17:14)
[2022-09-05] MEDS ORDERED: SNACK - Diabetic Appropriate PO SCH (20:00)
[2022-09-05] MEDS: FLOMAX PO SCH (21:04)
[2022-09-05] MEDS: NEURONTIN CAP 300 MG PO SCH (21:04)
[2022-09-06] MEDS: APRESOLINE TAB 25 MG PO SCH ×2 (00:36→08:49)
[2022-09-06] MEDS: NS 1,000 ML IV 1,000 ML IV SCH (02:59)
--- NOTE | 2022-09-06 06:28 | RAD ---
HISTORYShortness of breath, chronic renal failureSTUDYChest AP [id number]/10/2023FINDINGSHear t size is normal. Lalitha are normal. Lungs are hyperinflated consistent with COPD. There is abnormal parenchymal density in the retrocardiac area of the left lower lobe obscuring the medial left hemidiaphragm. This could be on the basis of atelectasis or infiltrate. There also appears to be some increased density in the medial right lung base which could represent infiltrate or atelectasis. Chest CT may be of further diagnostic value. No definite pleural effusions are identified. Bony thorax is unremarkable.IMPRESSIONHyperinflation suggestive of COPDAbnormal parenchymal density retrocardiac area left lower lobe obscuring the medial left hemidiaphragm and possibly on the basis of atelectasis or infiltrateIncreased density medial right lung base possibly also indicative of atelectasis or infiltrate.Electronically signed by: NOREEN BENJAMIN (September 06, 2022 06:26:32)
[2022-09-06 06:34] LABS: BASOPHILS % (AUTO) 0.3 % (0.2-1.0); HEMATOCRIT 27.6 % (42.0-54.0); LYMPHOCYTES # (AUTO) 0.4 X10^3/uL (1.3-2.9); LYMPHOCYTES % (AUTO) 3.3 % (21.0-51.0); MEAN CORPUSCULAR HGB CONC 32.5 g/dL (33.0-35.0); MEAN CORPUSCULAR VOLUME 89.1 fL (80.0-100.0); MEAN PLATELET VOLUME 7.4 fL (7.4-11.0); MONOCYTES # (AUTO) 0.4 x10^3/uL (0.3-0.8); MONOCYTES % (AUTO) 3.4 % (0.0-13.0); PLATELET COUNT 164 X10^3/uL (150.0-450.0); RED CELL DISTRIBUTION WIDTH 18.6 % (11.6-16.5); WHITE BLOOD COUNT 10.7 X10^3/uL (3.6-10.0)
[2022-09-06 06:46] LABS: ALANINE AMINOTRANSFERASE 12 Units/L (12-78); ALBUMIN 3.3 g/dL (3.4-5.0); ALKALINE PHOSPHATASE 57 Units/L (46-116); ASPARTATE AMINO TRANSFERASE 18 Units/L (15-37); BLOOD UREA NITROGEN 108 mg/dL (7-18); CHLORIDE 112 mmol/L (98-107); COR CA(FOR HYPOALB) 8.6 mg/dL (8.5-10.1); CREATININE 10.03 mg/dL (0.70-1.30); GLUCOSE 110 mg/dL (65-99); SODIUM 140 mmol/L (136-145); TOTAL PROTEIN 6.4 g/dL (6.4-8.2); eGFR NON BLACK RACES 5 (>60)
[2022-09-06 06:55] LABS: CARBON DIOXIDE 8.7 mmol/L (21-32)
[2022-09-06 06:56] LABS: POTASSIUM 7.7 mmol/L (3.5-5.1)
[2022-09-06 07:17] LABS: BAND NEUTROPHILS % 6 % (0-10); METAMYELOCYTES % 2; PLATELET MORPHOLOGY COMMENT NORMAL (NORMAL)
[2022-09-06] MEDS: NICOTINE PATCH TD SCH (08:48)
[2022-09-06] MEDS: NYSTATIN SUSP MT SCH ×2 (08:48→12:41)
[2022-09-06] MEDS: CYMBALTA PO SCH (08:48)
[2022-09-06] MEDS: PROSCAR PO SCH (08:48)
[2022-09-06] MEDS: NORVASC TAB 10 MG PO SCH (08:49)
[2022-09-06] MEDS: DIFLUCAN 100 MG IV (MIX by PHARMACY)* 100 MG/50 ML BAG IV SCH (08:49)
[2022-09-06] MEDS ORDERED: PULMICORT NEB TX 0.5 MG NEB SCH (09:00)
[2022-09-06] MEDS ORDERED: DUONEB 0.5 MG/3 MG (3 mL) NEB SCH (09:00)
[2022-09-06] MEDS ORDERED: LASIX IVP ONE (10:50)
[2022-09-06] MEDS ORDERED: D50W ABBOJECT SYR IV ONE (10:50)
[2022-09-06] MEDS ORDERED: NovoLIN R (or HumuLIN R) SUBCUT ONE (10:50)
[2022-09-06] MEDS ORDERED: MORPHINE SULFATE INJ 2 MG INJ IVP PRN ×2 (10:50→12:46)
[2022-09-06] MEDS ORDERED: NS 1,000 ML IV 1,000 ML with SODIUM BICARBONATE 8.4% INJ ADULT 50 ML IV SCH ×2 (10:51)
[2022-09-06] MEDS ORDERED: KLONOPIN TAB 0.5 MG PO SCH (11:00)
[2022-09-06 11:18] VITALS: BP 151/68
[2022-09-06] MEDS ORDERED: ATIVAN INJ 2 MG VIAL IVP ONE (12:15)
[2022-09-06] MEDS ORDERED: ATIVAN INJ 2 MG VIAL ONE (12:22)
[2022-09-06] MEDS ORDERED: ISOPTO ATROPINE SL PRN (12:51)
[2022-09-06] MEDS ORDERED: ISOPTO ATROPINE ONE (12:58)
[2022-09-06] MEDS ORDERED: ATIVAN INJ 2 MG VIAL IVP PRN (13:44)
[2022-09-06] MEDS ORDERED: SNACK - Diabetic Appropriate PO SCH (20:00)
== END 2022-09-06 15:30 | disposition expired | DRG 683 ==
LOC: MED/SURG → OBSVTOIN 10:29
PROVIDERS: ADMIT Internal Medicine; ATTEND Internal Medicine
DX: R41.82 Altered mental status, unspecified; D63.1 Anemia in chronic kidney disease; R53.1 Weakness; M51.36 Other intervertebral disc degeneration, lumbar region; R62.7 Adult failure to thrive; R53.83 Other fatigue; N18.9 Chronic kidney disease, unspecified; R06.02 Shortness of breath; I12.9 Hypertensive chronic kidney disease with stage 1 through stage 4 chronic kidney disease, or unspecified chronic kidney disease; R06.03 Acute respiratory distress; B37.89 Other sites of candidiasis; N17.8 Other acute kidney failure; E87.5 Hyperkalemia